=== PATIENT | female | born 1985 | race Caucasian/White ===

== ENCOUNTER 2017-01-29 00:14 | Emergency (ER) | payer BC, OTHER ==
[~2017-01-29] VITALS: Ht 172.7 cm; Wt 118.9 kg
[~2017-01-29 00:14] MED LIST: ACET-1256 PO; ASMIN/30 INH; BTLAI200 INJ; CYAN10005 PO; HYDR200T5 PO; LEVO137T3 PO; MULT-506 PO; NORE1CHW11 PO; PRVHFAIN INH; PRZ/40 PO; TOPI50TA16 PO
[2017-01-29 00:20] VITALS: TEMP 36.6; Ht 172.7 cm; Wt 118.9 kg
[2017-01-29] MEDS ORDERED: MoRPHine SULFATE 4 MG/ML 1 ML CARP\\VIAL IV STA (00:34)
[2017-01-29] MEDS ORDERED: ONDANSETRON INJ 2 MG/ML 2 ML VIAL IV STA (00:34)
[2017-01-29] MEDS ORDERED: SODIUM CHLORIDE 0.9% 1000ML 1,000 ML IV STA (00:34)
--- NOTE | 2017-01-29 00:38 | EMERGENCY ROOM VISIT NOTE ---
History Report prepared by Selamibgely: Solitario Nolen Under the Supervision of: Dr. Fidel Garcia D.O. First contact with patient: 00:27 Chief Complaint: OTHER COMPLAINT Stated Complaint: BLOODY DIARRHEA,VOMITING,DRY HEAVING,DIZZY,LUPUS History of Present Illness The patient is a 31 year old female who presents to the Emergency Room with complaints of persistent diarrhea since 0 today. The patient has been unable to keep anything down secondary to her nausea & vomiting. She has also had diarrhea, and notes that her last stool contained blood. The patient's son was experiencing nausea & vomiting prior to the patient. The patient notes that she has lupus, which is making her feel worse. She also has a brain lesion and chronic encephalitis. The patient is s/p gastric sleeve and thinks she developed an ulcer secondary to the surgery. Source of History: patient Onset: 1699 today Position: other (GI) Quality: other (vomiting) Timing: other (persistent) Associated Symptoms: + diarrhea, + nausea Review of Systems See HPI for pertinent positives and negatives. A total of ten systems were reviewed and were otherwise negative. 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 (14) Morbid Obesity (15) Obstructive Sleep Apnea (Adult) (Pediatric) (16) Pneumonia (17) Sleep apnea (18) Vitamin D deficiency Family History Diabetes mellitus Heart disease Hypertension Social History Smoking Status: Never Smoker Alcohol Use: none Drug Use: none Marital Status: Housing Status: lives with family Occupation Status: employed Current/Historical Medications Scheduled Botulinum Toxin Type A (Botox), 1 DOSE INJ [id number] Cyanocobalamin (Vitamin B-12), 5,000 MCG PO DAILY Fluoxetine Hcl (Prozac), 80 MG PO DAILY Hydroxychloroquine Sulfate (Plaquenil), 1 TAB PO BID Levothyroxine Sodium (Levothyroxine Sodium), 137 MCG PO DAILY Multivitamin (Multivitamin), 1 TAB PO DAILY Norethin Acet & Estrad-Fe (Minastrin 24 Fe), 1 DOSE PO DAILY Topiramate (Topamax), 75 MG PO DAILY Scheduled PRN Acetaminophen (Tylenol), 1,000 MG PO DIRECTED PRN for Pain Albuterol (Ventolin Hfa), 2 PUFFS INH Q6 PRN for Wheezing Mometasone Furoate (Asmanex Twisthaler 30 Me), 1 PUFF INH BID PRN for Shortness of Breath Allergies Coded Allergies: No Known Allergies (Unverified , 01/29/17) Physical Exam Vital Signs Date Time Temp Pulse Resp B/P Pulse Ox O2 Delivery O2 Flow Rate FiO2 01/29/17 01:00 88 01/29/17 00:20 36.6 102 18 132/85 100 Room Air Physical Exam GENERAL: Awake, alert, well-appearing, in no distress HENT: Normocephalic, atraumatic. Oropharynx unremarkable. EYES: Normal conjunctiva. Sclera non-icteric. NECK: Supple. No nuchal rigidity. FROM. No JVD. RESPIRATORY: Clear to auscultation. CARDIAC: Regular rate, normal rhythm. Extremities warm and well perfused. Pulses equal. ABDOMEN: Soft, non-distended. No tenderness to palpation. No rebound or guarding. No masses. RECTAL: Deferred. MUSCULOSKELETAL: Chest examination reveals no tenderness. The back is symmetrical on inspection without obvious abnormality. There is no CVA tenderness to palpation. No joint edema. LOWER EXTREMITIES: Calves are equal size bilaterally and non-tender. No edema. No discoloration. NEURO: Normal sensorium. No sensory or motor deficits noted. SKIN: No rash or jaundice noted. Medical Decision & Procedures Laboratory Results 01/29/17 00:50 Red Blood Count 5.05, Mean Corpuscular Volume 74.7, Mean Corpuscular Hemoglobin 24.2, Mean Corpuscular Hemoglobin Concent 32.4, Mean Platelet Volume 9.8 01/29/17 00:50 Test 01/29/17 00:50 White Blood Count 20.06 K/uL (4.8-10.8) Red Blood Count 5.05 M/uL (4.2-5.4) Hemoglobin 12.2 g/dL (12.0-16.0) Hematocrit 37.7 % (37-47) Mean Corpuscular Volume 74.7 fL (80-100) Mean Corpuscular Hemoglobin 24.2 pg (25-34) Mean Corpuscular Hemoglobin Concent 32.4 g/dl (32-36) Platelet Count 305 K/uL (130-400) Mean Platelet Volume 9.8 fL (7.4-10.4) RDW Standard Deviation 39.5 fL (36.4-46.3) RDW Coefficient of Variation 14.6 % (11.5-14.5) Anion Gap 14.0 mmol/L (3-11) Est Creatinine Clear Calc Drug Dose 109.5 ml/min Estimated GFR () 86.3 Estimated GFR (Non- 74.5 BUN/Creatinine Ratio 15.3 (10-20) Calcium Level 9.0 mg/dl (8.5-10.1) Total Bilirubin 0.6 mg/dl (0.2-1) Direct Bilirubin 0.1 mg/dl (0-0.2) Aspartate Amino Transf (AST/SGOT) 10 U/L (15-37) Alanine Aminotransferase (ALT/SGPT) 19 U/L (12-78) Alkaline Phosphatase 128 U/L (45-117) Total Protein 8.5 gm/dl (6.4-8.2) Albumin 4.1 gm/dl (3.4-5.0) Lipase 138 U/L (73-393) Laboratory results reviewed by me Medications Administered Medications (Trade) Dose Ordered Sig/Derek Route Start Time Stop Time Status Last Admin Dose Admin Ondansetron HCl 4 mg 4 mg NOW STAT IV 01/29/17 00:34 01/29/17 00:38 DC 01/29/17 00:59 4 MG Sodium Chloride (Nss 1000ml) 1,000 ml @ 999 mls/hr Q1H1M STAT IV 01/29/17 00:34 01/29/17 01:34 DC 01/29/17 00:34 999 MLS/HR Morphine Sulfate (MoRPHine SULFATE INJ) 4 mg NOW STAT IV 01/29/17 00:34 01/29/17 00:38 DC 01/29/17 00:59 4 MG ED Course 0030: The patient was evaluated in room B6. A complete history and physical exam was performed. 0034: Morphine Sulfate 4 mg IV, NSS 1000 ml @ 999 mls/hr, Zofran 4 mg IV. 0145: Upon reevaluation, the patient was doing much better. I discussed the discharge instructions with her. She verbalized understanding. The patient is ready for discharge. Medical Decision Etiologies such as gastroenteritis, food borne illness, infections, obstruction , pancreatitis, appendicitis, diverticulitis, inflammatory bowel disease, GI bleed, biliary pathology, toxicologic as well as others were entertained. Patient on reexamination at 1:48 AM is resting in no distress and much improved after medication as well as IV fluids. I doubt bowel obstruction I doubt sepsis and I doubt bacterial cause for her vomiting and diarrhea. Patient has an elevated white blood cell count I suspect that's due to vomiting and diarrhea. I discussed the workup with the patient and the patient's friend at bedside and answered all questions. Impression Primary Impression: Vomiting and diarrhea Scribe Attestation The scribe's documentation has been prepared under my direction and personally reviewed by me in its entirety. I confirm that the note above accurately reflects all work, treatment, procedures, and medical decision making performed by me. Departure Information Dispostion Home / Self-Care Prescriptions Ondasetron Odt (ZOFRAN ODT) 4 Mg Tab 4 MG SL Q6H for Nausea, #6 TAB Prov: Fidel Garcia, DO 01/29/17 Referrals Manjula Arciniega (PCP) Forms HOME CARE DOCUMENTATION FORM, IMPORTANT VISIT INFORMATION, WORK / SCHOOL INSTRUCTIONS Patient Instructions ED Vomiting Diarrhea Nonspecific Ad, My [facility]
[2017-01-29 01:07] LABS: HEMATOCRIT 37.7 % (37-47); MEAN CELL VOLUME 74.7 fL (80-100); MEAN CORPUSCULAR HEMOGLOBIN 24.2 pg (25-34); MEAN CORPUSCULAR HGB CONC 32.4 g/dl (32-36); MEAN PLATELET VOLUME 9.8 fL (7.4-10.4); PLATELET COUNT 305 K/uL (130-400); RED BLOOD COUNT 5.05 M/uL (4.2-5.4); WHITE BLOOD COUNT 20.06 K/uL (4.8-10.8)
[2017-01-29 01:25] LABS: BUN/CREATININE RATIO 15.3 (10-20); POTASSIUM 3.7 mmol/L (3.5-5.1)
[2017-01-29 01:49] LABS: ANISOCYTOSIS PRESENT; BASO % 0.1 %; BASO ABS # 0.02 K/uL (0-0.2); COMPLETE YES; EOS % 0.1 %; IG% 0.3 %; LYMPH % 1.4 %; LYMPH ABS # 0.28 K/uL (1.2-3.4); NEUT % 93.1 %
[2017-01-29] MEDS ORDERED: ONDA4TAB10 SL (01:49)
[2017-01-29] MEDS ORDERED: ONDANSETRON HOME PACK 4MG OD TAB PO ONE (02:00)
[2017-01-29 02:14] VITALS: BP 122/77; PULSE 95; O2SAT 100
== END 2017-01-29 02:15 | disposition home or self-care (01) ==
LOC: C.EDB 00:19
DX: R11.10 Vomiting, unspecified (principal); R19.7 Diarrhea, unspecified; M32.9 Systemic lupus erythematosus, unspecified; G93.9 Disorder of brain, unspecified; G04.90 Encephalitis and encephalomyelitis, unspecified; F41.9 Anxiety disorder, unspecified; E11.9 Type 2 diabetes mellitus without complications; I10 Essential (primary) hypertension; E03.9 Hypothyroidism, unspecified; G47.33 Obstructive sleep apnea (adult) (pediatric); E66.01 Morbid (severe) obesity due to excess calories; Z86.14 Personal history of Methicillin resistant Staphylococcus aureus infection; E55.9 Vitamin D deficiency, unspecified; Z98.84 Bariatric surgery status; Z83.3 Family history of diabetes mellitus; Z82.49 Family history of ischemic heart disease and other diseases of the circulatory system; Z79.899 Other long term (current) drug therapy

== ENCOUNTER → 2017-06-05 | Outpatient (CLI) | payer BC ==
[~2017-06-05] MED LIST changes: -ASMIN/30 INH; +GADAVIST IV PRN; -NORE1CHW11 PO; +ONDA4TAB10 SL
--- NOTE | 2017-06-05 10:56 | DIAGNOSTIC IMAGING REPORT ---
BRAIN COMBO CLINICAL HISTORY: HEADACHES, MEMORY LOSS mental status change COMPARISON STUDY: 06/07/2016 TECHNIQUE: Utilizing a 1.5 Rebecca magnet and dedicated coil, multiplanar, multiecho imaging of the brain was performed pre and postcontrast administration. IV administration of 8.5 mL of Gadavist contrast was uneventful. FINDINGS: No evidence for an acute ischemic process. Small focus of increased FLAIR signal posterior right frontal lobe unchanged from the prior exam. No abnormal postcontrast enhancement. The ventricular system is midline. Sella and parasellar regions are unremarkable. Cerebellar tonsils are somewhat low-lying unchanged from the prior exam. No evidence for hydrocephalus. IMPRESSION: 1. Stable exam with no change from the prior study. 2. Stable nonspecific focus of increased T2 and FLAIR signal posterior right frontal lobe. 3. No acute process. No interval change from the prior study The above report was generated using voice recognition software. It may contain grammatical, syntax or spelling errors. Electronically signed by: Lenny Forbes M.D. 06/05/2017 10:54 AM Dictated Date/Time: 06/05/2017 10:46 AM
== END | disposition home or self-care (01) ==
LOC: C.MRIBC 09:37
PROVIDERS: ATTEND Internal Medicine Rheumatology
DX: R41.3 Other amnesia (principal); R51 Headache

== ENCOUNTER → 2017-06-06 | Outpatient (CLI) | payer BC ==
[~2017-06-06] MED LIST changes: -GADAVIST IV PRN
== END | disposition home or self-care (01) ==
LOC: C.LAB 08:42
PROVIDERS: ATTEND Psychiatry & Neurology Neurology
DX: G25.81 Restless legs syndrome (principal)

== ENCOUNTER → 2017-07-09 | Outpatient (CLI) | payer BC ==
[2017-07-09 12:43] LABS: HEMATOCRIT 36.9 % (37-47); MEAN CELL VOLUME 79.4 fL (80-100); MEAN CORPUSCULAR HEMOGLOBIN 24.9 pg (25-34); MEAN CORPUSCULAR HGB CONC 31.4 g/dl (32-36); MEAN PLATELET VOLUME 10.1 fL (7.4-10.4); PLATELET COUNT 326 K/uL (130-400); RED BLOOD COUNT 4.65 M/uL (4.2-5.4); WHITE BLOOD COUNT 6.97 K/uL (4.8-10.8)
== END | disposition home or self-care (01) ==
LOC: C.LAB1850 10:52
PROVIDERS: ATTEND Obstetrics & Gynecology
DX: N92.0 Excessive and frequent menstruation with regular cycle (principal)

== ENCOUNTER → 2017-12-10 | Day surgery (SDC) | payer OTHER ==
[2017-11-29 15:21] VITALS: BMI 40.0
[~2017-12-10] VITALS: Ht 172.7 cm; Wt 120.5 kg
[~2017-12-10] MED LIST changes: +ASMANAX INH; -BTLAI200 INJ; +CHOL1000 PO; -CYAN10005 PO; +CYAN50LO2 SL; +FENTANYL CITRATE INJ 50 MCG/1 ML 2 ML VIAL ONE; +KETAMINE HCL INJ 50 MG/ML 10 ML VIAL ONE; +LIDOCAINE HCL 2% 2 ML VIAL (20MG/ML) ONE; +MIDAZOLAM HCL 1 MG/ML 2ML VIAL ONE; -MULT-506 PO; -ONDA4TAB10 SL; +PROPOFOL IV EMULSION 10 MG/ML 20 ML VIAL IV ONE; +SODIUM CHLORIDE 0.9% 500ML 500 ML IV ONE; +TOPI1CAP14 PO; -TOPI50TA16 PO
[2017-12-10 14:45] VITALS: Ht 172.7 cm; Wt 120.5 kg
--- NOTE | 2017-12-10 15:03 | Endo History and Physical ---
History & Physical Date of Service: Dec 10, 2017. Chief Complaint: RECTAL BLEEDING, IRON DEFICIENCY ANEMIA Referring Physician: DR ZURI ESCOBEDO History of Present Illness rectal bleeding/JAIRON Past Medical History Diabetes, Anxiety, Sleep Apnea, Depression Past Surgical History Hx Cardiac Surgery: No Hx Internal Defibrillator: No Hx Pacemaker: No Hx Abdominal Surgery: Yes (GASTRIC SLEEVE, X2, UTERINE ABLATION, OVARIAN CYST REMOVAL) Hx of Implantable Prosthesis: No Hx Post-Op Nausea and Vomiting: No Hx Cancer Surgery: No Hx Thoracic Surgery: No Hx Orthopedic: No Hx Urinary Tract Surgery: No Family History Polyp Social History Smoking Status: Never Smoker Hx Substance Use: No Hx Alcohol Use: No Allergies Coded Allergies: No Known Allergies (Verified , 12/10/17) Current Medications Reported Home Medications Medications Dose Route/Sig Max Daily Dose Days Date Category [Asmanax] 2 Puffs INH BID 11/29/17 Reported Vitamin B-12 (Cyanocobalamin) 50 Mcg Joey 1 Dose SL DAILY 11/29/17 Reported Vitamin D3 (Cholecalciferol) 1,000 Unit Tab 1 Tab PO DAILY 11/29/17 Reported Qudexy Xr (Topiramate) 150 Mg Cap 1 Cap PO HS 11/29/17 Reported Ventolin Hfa (Albuterol) 60 Puffs/5400 Mcg Aers 2 Puffs INH Q6 PRN 06/28/16 Reported Tylenol (Acetaminophen) 500 Mg Tab 1,000 Mg PO DIRECTED PRN 04/18/16 Reported Plaquenil (Hydroxychloroquine Sulfate) 200 Mg Tab 1 Tab PO BID 02/22/16 Reported Levothyroxine Sodium 137 Mcg Tab 137 Mcg PO HS 09/29/14 Reported Prozac (Fluoxetine Hcl) 40 Mg Cap 80 Mg PO QAM 09/29/14 Reported Vital Signs Weight (Kilograms): 120.45 Height (Feet): 5 Height (Inches): 8 Date Time Temp Pulse Resp B/P (MAP) Pulse Ox O2 Delivery O2 Flow Rate FiO2 12/10/17 14:43 36.5 68 18 126/78 (94) 98 Room Air Physical Exam General Appearance: WD/WN, no apparent distress Respiratory/Chest: Auscultation: breath sounds normal Cardiovascular: Heart Auscultation: RRR Abdomen: Bowel Sounds: normal Inspection & Palpation: soft, non-distended, no tenderness, guarding & rebound Assessment and Plan EGD/Push colonoscopy
--- NOTE | 2017-12-10 16:09 | GI REPORT ---
Procedure Date: 12/10/2017 3:16 PM Procedure: Colonoscopy Indications: Chronic diarrhea, Unexplained iron deficiency anemia, Hx colitis in [place], [place]- rx's with Asacol; stopped due to passing whole tablets. Medicines: Propofol per Anesthesia Complications: No immediate complications. Estimated blood loss: Minimal. Estimated Blood Loss: Estimated blood loss was minimal. Estimated blood loss was minimal. Procedure: Pre-Anesthesia Assessment: - Prior to the procedure, a History and Physical was performed, and patient medications and allergies were reviewed. The patient's tolerance of previous anesthesia was also reviewed. The risks and benefits of the procedure and the sedation options and risks were discussed with the patient. All questions were answered, and informed consent was obtained. Prior Anticoagulants: The patient has taken no previous anticoagulant or antiplatelet agents. ASA Grade Assessment: II - A patient with mild systemic disease. After reviewing the risks and benefits, the patient was deemed in satisfactory condition to undergo the procedure. After I obtained informed consent, the scope was passed under direct vision. Throughout the procedure, the patient's blood pressure, pulse, and oxygen saturations were monitored continuously. The scope was introduced through the anus and advanced to the terminal ileum, with identification of the appendiceal orifice and IC valve. The colonoscopy was performed without difficulty. The patient tolerated the procedure well. The quality of the bowel preparation was good. Findings: The perianal and digital rectal examinations were normal. Pertinent negatives include normal sphincter tone, no palpable rectal lesions and no anal lesion or abnormality was detected. The colon (entire examined portion) appeared normal. The rectum, sigmoid colon, descending colon, transverse colon, ascending colon, cecum and ileum appeared normal. Biopsies were taken with a cold forceps for histology. Estimated blood loss was minimal. Verification of patient identification for the specimen was done by the physician and instrumentation and control technician using the patient's name and medical record number. The retroflexed view of the distal rectum and anal verge was normal and showed no anal or rectal abnormalities. Impression: - The entire examined colon is normal. - The rectum, sigmoid colon, descending colon, transverse colon, ascending colon, cecum and terminal ileum are normal. Biopsied. - The distal rectum and anal verge are normal on retroflexion view. Recommendation: - Discharge patient to home (ambulatory). - Resume regular diet. - Continue present medications. - Await pathology results. - Repeat colonoscopy for surveillance based on pathology results. - Return to referring physician as previously scheduled. MD Arsh Vega MD 12/10/2017 4:08:32 PM This report has been signed electronically. Note Initiated On: 12/10/2017 3:16 PM I attest to the content of the Intraoperative Record and orders documented therein, exceptions below
--- NOTE | 2017-12-10 16:16 | Discharge Instructions ---
Endoscopy Patient Instructions Date / Procedure(s) Performed Dec 10, 2017. Colonoscopy, EGD Allergy Information Coded Allergies: No Known Allergies (Verified , 12/10/17) Discharge Date / Findings Dec 10, 2017. nl colon EGD with linear gastritis Medication Instructions Restart Stopped Medication(s): Reported Home Medications Medications Dose Route/Sig Max Daily Dose Days Date Category [Asmanax] 2 Puffs INH BID 11/29/17 Reported Vitamin B-12 (Cyanocobalamin) 50 Mcg Joey 1 Dose SL DAILY 11/29/17 Reported Vitamin D3 (Cholecalciferol) 1,000 Unit Tab 1 Tab PO DAILY 11/29/17 Reported Qudexy Xr (Topiramate) 150 Mg Cap 1 Cap PO HS 11/29/17 Reported Ventolin Hfa (Albuterol) 60 Puffs/5400 Mcg Aers 2 Puffs INH Q6 PRN 06/28/16 Reported Tylenol (Acetaminophen) 500 Mg Tab 1,000 Mg PO DIRECTED PRN 04/18/16 Reported Plaquenil (Hydroxychloroquine Sulfate) 200 Mg Tab 1 Tab PO BID 02/22/16 Reported Levothyroxine Sodium 137 Mcg Tab 137 Mcg PO HS 09/29/14 Reported Prozac (Fluoxetine Hcl) 40 Mg Cap 80 Mg PO QAM 09/29/14 Reported Reported Home Medications Medications Dose Route/Sig Max Daily Dose Days Date Category [Asmanax] 2 Puffs INH BID 11/29/17 Reported Vitamin B-12 (Cyanocobalamin) 50 Mcg Joey 1 Dose SL DAILY 11/29/17 Reported Vitamin D3 (Cholecalciferol) 1,000 Unit Tab 1 Tab PO DAILY 11/29/17 Reported Qudexy Xr (Topiramate) 150 Mg Cap 1 Cap PO HS 11/29/17 Reported Ventolin Hfa (Albuterol) 60 Puffs/5400 Mcg Aers 2 Puffs INH Q6 PRN 06/28/16 Reported Tylenol (Acetaminophen) 500 Mg Tab 1,000 Mg PO DIRECTED PRN 04/18/16 Reported Plaquenil (Hydroxychloroquine Sulfate) 200 Mg Tab 1 Tab PO BID 02/22/16 Reported Levothyroxine Sodium 137 Mcg Tab 137 Mcg PO HS 09/29/14 Reported Prozac (Fluoxetine Hcl) 40 Mg Cap 80 Mg PO QAM 09/29/14 Reported Provider Instructions Activity Restrictions - No exercising or heavy lifting for 24 hours. - Do not drink alcohol the day of the procedure. - Do not drive a car or operate machinery until the day after the procedure. - Do not make any important decisions or sign important papers in 24 hours after the procedure. Following Day: - Return to full activity which may include returning to work/school. Diet Start your diet with liquids and light foods (jello, soup, juice, toast). Then eat your usual diet if not nauseated. Treatment For Common After Affects For mild abdominal pain, bloating, or excessive gas: - Rest - Eat lightly - Lie on right side Follow-Up Information Follow-up with DR ZURI ESCOBEDO as scheduled Anesthesia Information What You Should Know You have had a procedure that required some medicine to reduce anxiety and discomfort. This treatment is called moderate sedation. After receiving the treatment, you may be sleepy, but you will be able to breathe on your own. The effects of the treatment may last for several hours. Follow these instructions along with Activity/Diet recommendations noted above: * Do NOT do anything where dizziness or clumsiness would be dangerous. * Rest quietly at home today, then you can be up and about tomorrow. * Have a responsible person stay with you the rest of today. * You may have had an I.V. today. If so, you may take the dressing off later today. Recommendations Call your doctor if: * Trouble breathing * Continuous vomiting for more than 24 hours * Temperature above 101 degrees * Severe abdominal pain or bloating * Pain not relieved by pain medicine ordered * There is increased drainage or redness from any incision * A large amount of rectal bleeding greater than 2-3 tablespoons. (If you had a polyp/s removed or have hemorrhoids, a small amount of blood - from the rectum is to be expected.) * You have any unanswered questions or concerns. IN THE EVENT OF A SERIOUS EMERGENCY, GO TO THE NEAREST EMERGENCY ROOM Your discharge instructions were prepared by provider Arsh eDng. Patient Instructions Signature Page Komal Sifuentes Patient (or Guardian) Signature/Date: I have read and understand the instructions given to me by my caregivers. Caregiver/RN/Doctor Signature/Date: The above-named patient and/or guardian has received patient instructions on this date. + Original Patient Signature Page (only) stays with chart. Please make copy for patient.
--- NOTE | 2017-12-10 16:17 | Anesthesiology Progress Note ---
Anesthesia Post Op Note Date & Time Dec 10, 2017 at 16:16 Vital Signs Pain Intensity: 0 Vital Signs Past 12 Hours Date Time Temp Pulse Resp B/P (MAP) Pulse Ox O2 Delivery O2 Flow Rate FiO2 12/10/17 16:02 72 12 113/78 (90) 100 Nasal Cannula 3 12/10/17 14:43 36.5 68 18 126/78 (94) 98 Room Air Notes Mental Status: alert / awake / arousable, participated in evaluation Pt Amnestic to Procedure: Yes Nausea / Vomiting: adequately controlled Pain: adequately controlled Airway Patency, RR, SpO2: stable & adequate BP & HR: stable & adequate Hydration State: stable & adequate Anesthetic Complications: no major complications apparent
--- NOTE | 2017-12-10 16:22 | GI REPORT ---
Procedure Date: 12/10/2017 3:16 PM Procedure: Upper GI endoscopy Indications: Iron deficiency anemia, Unexplained iron deficiency anemia, Hx gastric sleeve surgery Medicines: Propofol per Anesthesia Complications: No immediate complications. Estimated blood loss: Minimal. Estimated Blood Loss: Estimated blood loss was minimal. Procedure: Pre-Anesthesia Assessment: - Prior to the procedure, a History and Physical was performed, and patient medications and allergies were reviewed. The patient's tolerance of previous anesthesia was also reviewed. The risks and benefits of the procedure and the sedation options and risks were discussed with the patient. All questions were answered, and informed consent was obtained. Prior Anticoagulants: The patient has taken no previous anticoagulant or antiplatelet agents. ASA Grade Assessment: II - A patient with mild systemic disease. After reviewing the risks and benefits, the patient was deemed in satisfactory condition to undergo the procedure. After obtaining informed consent, the endoscope was passed under direct vision. Throughout the procedure, the patient's blood pressure, pulse, and oxygen saturations were monitored continuously. The scope was introduced through the mouth, and advanced to the mid-jejunum. The upper GI endoscopy was accomplished without difficulty. The patient tolerated the procedure well. Findings: The examined esophagus was normal. The Z-line was regular and was found 40 cm from the incisors. Evidence of a sleeve gastrectomy was found in the gastric fundus. This was characterized by congestion, erythema and inflammation. Multiple localized, small non-bleeding erosions were found in the gastric body and in the gastric antrum. There were no stigmata of recent bleeding. Biopsies were taken with a cold forceps for histology. Estimated blood loss was minimal. Verification of patient identification for the specimen was done by the physician and video game technician using the patient's name and medical record number. The examined duodenum was normal. Biopsies for histology were taken with a cold forceps for evaluation of celiac disease. Estimated blood loss was minimal. Verification of patient identification for the specimen was done by the physician and video game technician using the patient's name and medical record number. The examined jejunum was normal. The cardia and gastric fundus were normal on retroflexion. Retained gastric contents are not identified on this exam. Impression: - Normal esophagus. - Z-line regular, 40 cm from the incisors. - A sleeve gastrectomy was found, characterized by congestion, erythema and inflammation. - Non-bleeding erosive gastropathy. Biopsied. - Normal examined duodenum. Biopsied. - Normal examined jejunum. Recommendation: - Discharge patient to home (ambulatory). - Resume regular diet. - Continue present medications. - Await pathology results. - Return to referring physician as previously scheduled. MD Arsh Vega MD 12/10/2017 4:21:35 PM This report has been signed electronically. Note Initiated On: 12/10/2017 3:16 PM I attest to the content of the Intraoperative Record and orders documented therein, exceptions below
[2017-12-10 16:46] VITALS: BP 126/81; PULSE 72; O2SAT 100
== END | disposition home or self-care (01) ==
LOC: C.GI 13:42
PROVIDERS: ATTEND Internal Medicine Gastroenterology
DX: K62.5 Hemorrhage of anus and rectum (principal); D50.9 Iron deficiency anemia, unspecified; K29.50 Unspecified chronic gastritis without bleeding; R19.7 Diarrhea, unspecified; E11.9 Type 2 diabetes mellitus without complications; F41.9 Anxiety disorder, unspecified; G47.30 Sleep apnea, unspecified; F32.9 Major depressive disorder, single episode, unspecified; Z98.84 Bariatric surgery status; Z79.899 Other long term (current) drug therapy

== ENCOUNTER → 2018-02-11 | Outpatient (CLI) | payer OTHER ==
[~2018-02-11] MED LIST changes: -FENTANYL CITRATE INJ 50 MCG/1 ML 2 ML VIAL ONE; -KETAMINE HCL INJ 50 MG/ML 10 ML VIAL ONE; -LIDOCAINE HCL 2% 2 ML VIAL (20MG/ML) ONE; -MIDAZOLAM HCL 1 MG/ML 2ML VIAL ONE; -PROPOFOL IV EMULSION 10 MG/ML 20 ML VIAL IV ONE; -SODIUM CHLORIDE 0.9% 500ML 500 ML IV ONE
--- NOTE | 2018-02-11 15:35 | DIAGNOSTIC IMAGING REPORT ---
MRI OF THE BRAIN WITHOUT CONTRAST CLINICAL HISTORY: Headache. Follow-up white matter abnormality. COMPARISON STUDY: MRI of the brain July 17, 2014 and June 05, 2017. TECHNIQUE: Utilizing a 1.5 Rebecca magnet and dedicated coil, multiplanar, multiecho imaging of the brain was performed without IV contrast. FINDINGS: Exam is mildly compromised by motion artifact. There are no foci of restricted diffusion. No acute intracranial hemorrhage, midline shift or mass effect is present. Ventricular system is normal. Basilar cisterns are patent. Flow-voids for the major intracranial vessels are present. No intracranial masses identified on this unenhanced examination. A 7 mm T2 hyperintense focus within the medial inferior right frontal lobe shown best on coronal FLAIR image is similar to exam of June 05, 2017 and decreased in conspicuity from earlier MRIs. No additional foci of signal abnormality are identified on this exam. Orbits are unremarkable. Calvarial signal is maintained. A T2 hyperintense focus within the right maxillary sinus is unchanged. This may reflect images retention cyst or polyp. Several suspected sebaceous cysts are noted. IMPRESSION: 1. No acute intracranial findings. 2. No change in a 7 mm T2 hyperintense focus within the inferior medial right frontal lobe since previous exam. 3. Study mildly compromised by motion artifact. Electronically signed by: Rei Trejo M.D. 02/11/2018 3:34 PM Dictated Date/Time: 02/11/2018 3:27 PM
== END | disposition home or self-care (01) ==
LOC: C.MRI 14:33
PROVIDERS: ATTEND Internal Medicine Rheumatology
DX: R51 Headache (principal)

== ENCOUNTER → 2018-03-26 | Outpatient (CLI) | payer OTHER ==
--- NOTE | 2018-03-26 21:42 | DIAGNOSTIC IMAGING REPORT ---
ABDOMINAL WALL ULTRASOUND CLINICAL HISTORY: Abdominal wall mass abdominal wall bruising COMPARISON STUDY: No previous studies for comparison. FINDINGS: There is slight heterogeneity in the anterior abdominal wall fat. This could be secondary to an area of bruising or fat necrosis given the clinical history of visualized ecchymosis. No focal masses are delineated. IMPRESSION: 1. No focal masses are visualized ultrasonographically 2. Slight heterogeneity of the anterior abdominal wall subcutaneous fat. This could be secondary to an area of bruising or fat necrosis. 3. No evidence of anterior abdominal wall hernia Electronically signed by: David Vasquez M.D. 03/26/2018 9:41 PM Dictated Date/Time: 03/26/2018 9:37 PM
== END | disposition home or self-care (01) ==
LOC: C.ULTR 21:00
PROVIDERS: ATTEND Family Medicine
DX: R19.00 Intra-abdominal and pelvic swelling, mass and lump, unspecified site (principal)

== ENCOUNTER 2019-04-16 18:49 | Inpatient (IN) ==
--- OUTSIDE RECORDS SUMMARY | 2019-04-16 18:52 | External Medical Summary | Continuity of Care Document ---
:1985 Author Name Lauren Garcia, Provider Address Unavailable Unavailable , Care Team Providers Name Role Phone Tammi Baptiste DO Unavailable [email or web address] Griselda Rogers PA-C Unavailable [email or web address] Mohsen Salazar M.D. Unavailable [email or web address] Case Nan SMITH Unavailable [email or web address] Problems Meningioma (225.2) (D32.9) Dysmenorrhea (625.3) (N94.6) Obstructive sleep apnea (327.23) (G47.33) Headache (784.0) (R51) Syncope (780.2) (R55) Dizziness (780.4) (R42) Abnormal brain MRI (793.0) (R90.89) Claustrophobia (300.29) (F40.240) Pneumonia (486) (J18.9) Chronic cough (786.2) (R05) Restless legs (333.94) (G25.81) Chronic headaches (784.0) (R51) Reactive airway disease (493.90) (J45.909) Nasal pain (478.19) (J34.89) Menorrhagia with regular cycle (626.2) (N92.0) Iron deficiency (280.9) (E61.1) Systemic lupus erythematosus (710.0) (M32.9) Chronic migraine (346.70) (G43.709) Anxiety (300.00) (F41.9) Arthritis (716.90) (M19.90) Cyst of soft tissue (729.99) (M79.89) Allergies and Adverse Reactions No Known Drug Allergies (Allergy) Medications Asmanex 120 Metered Doses 220 MCG/INH In halation Aerosol Powder Breath Activated; INHALE 1 PUFF TWICE DAILY. LUIS Rogers Start: 2-Aug-201 6 Quantity: 3 Refills: 0 Vitamin B-12 5000 MCG Sublingual Tablet Sublingual Refills: 0 Multivital TABS Refills: 0 PROzac 40 MG Oral Capsule; TAKE 2 CAPSULES DAILY. Refills: 0 Qudexy XR 100 MG Oral Capsule ER 24 Hour Sprinkle; TAKE 1 CAPSULE Daily total 300mg Case, LUIS Ambrose Start: 27-Aug-2018 Quantity: 30 Refills: 5 Plaquenil 200 MG Oral Tablet; TAKE 1 TABLET TWICE DAILY. Refills: 0 Qudexy XR 200 MG Oral Capsule ER 24 Hour Sprinkle; TAKE 1 CAPSULE BY MOUTH DAILY DO Rober Baptistelie Start: 13-Mar-2019 Quantity: 30 Refills: 5 Naratriptan HCl - 2.5 MG Oral Tablet; TA KE 1 TABLET AT ONSET OF HEADACHE, MAY REPEAT ONCE IN 4 HOURS. Max 2 tabs in 24hrs and 4 tabs in one week Case, LUIS Ambrose Start: 30-Aug-2016 Quantity: 8 Refills: 5 Mupirocin 2 % External Ointment; APPLY SMALL AMOUNT IN SIDE NOSTRILS TWICE DAILY Radha Salazar Start: 21-Jun-2017 Quantity: 1 22 GM Tube Refills: 3 ProAir HFA 108 (90 Base) MCG/ACT Inhalat ion Aerosol Solution; INHALE 2 PUFFS EVERY 4 HOURS NEEDED LUIS Rogers Start: 13-Jun-2017 Quantity: 1 8.5 GM Inhaler Refills: 3 Diclofenac Sodium 75 MG Oral Tablet Cherelle yed Release; one BID with food prn pain, as needed for headache, no more than 2-3 days a week Case, LUIS Ambrose Start: 02-Jan-2018 Quantity: 30 Refills: 3 Procedures History of Section Status: Comp leted History of Drainage Of Ovarian Cyst(S) S tatus: Completed History of gastric bypass surgery Status : Completed History of wisdom tooth extraction Statu s: Completed History of skin abscess incision and drainage Status: Completed Immunizations Immunizations not documented Family History Mother Family history of alcoholism (V17.0) (Z81.1) Status: Active Family history of hypertension (V17.49) (Z82.49) Status: Act jason Family history of cardiac disorder (V17.49) (Z82.49) Status: Active Family history of bleeding disorder (V18.3) (Z83.2) Status: Active Family history of malignant neoplasm of uterus (V16.49) (Z80 .49) Status: Active Father Family history of hypertension (V17.49) (Z82.49) Status: Act jason Family history of cardiac disorder (V17.49) (Z82.49) Status: Active Grandparent Family history of cerebrovascular accident (CVA) (V17.1) (Z8 2.3) Status: Active Social History - Smoking Status Never smoker Plan of Treatment Planned Observations Planned Goals not documented Results No Known Results Results not documented Encounters Appointment; Kobe Mae DO 05-Feb-2019 10:20 Encounter Diagnosis: Problem not documented Appointment; Kobe Mae DO 08-Jan-2019 9:00 Encounter Diagnosis: Problem not documented Appointment; Kobe Mae DO 18-Dec-2018 8:50 Encounter Diagnosis: Problem not documented Appointment; Kobe Mae DO 06-Dec-2018 10:30 Encounter Diagnosis: Problem not documented Appointment; Nan Huerta PA-C 27-Nov-2018 9:00 Encounter Diagnosis: Problem not documented Appointment; Kobe Mae DO 20-Nov-2018 13:50 Encounter Diagnosis: Problem not documented Appointment; Nan Huerta PA-C 27-Aug-2018 11:30 Encounter Diagnosis: Problem not documented Appointment; Nan Huerta PA-C 29-Apr-2018 9:00 Encounter Diagnosis: Problem not documented Appointment; Nan Huerta PA-C 02-Jan-2018 9:00 Encounter Diagnosis: Problem not documented Appointment; Tammi Baptiste DO 02-Oct-2017 14:40 Encounter Diagnosis: Problem not documented Appointment; Tammi Baptiste DO 01-Aug-2017 14:40 Encounter Diagnosis: Problem not documented Appointment; Jan Diaz M.D. 09-Jul-2017 10:00 Encounter Diagnosis: Problem not documented Appointment; Mohsen Salazar M.D. 21-Jun-2017 10:00 Encounter Diagnosis: Problem not documented Appointment; Griselda Rogers PA-C 13-Jun-2017 14:45 Encounter Diagnosis: Problem not documented Appointment; Pulmonary, Funct Testing 13-Jun-2017 10:45 Encounter Diagnosis: Problem not documented Appointment; Pulmonary, Funct Testing 17-May-2017 9:00 Encounter Diagnosis: Problem not documented
--- NOTE | 2019-04-16 20:17 | CT Scan Report ---
ABDOMEN AND PELVIS CT WITHOUT CONTRAST CT DOSE: 944.64 mGycm HISTORY: eval for hernia/mass lower abd on scar TECHNIQUE: Multiaxial CT images of the abdomen and pelvis were performed without contrast. A dose lo wering technique was utilized adhering to the principles of ALARA. COMPARISON STUDY: Abdominal ultrasound 03/26/2018. FINDINGS: Within the subcutaneous fat of the lower left anterior abdominal wall there is a 2.6 x 2.4 cm soft tissue masslike density. This abuts the left rectus abdominus muscle. No hernia identified wi thin the abdominal wall. The lung bases are clear. The unenhanced liver, gallbladder, pancreas, splee n, adrenal glands, and left kidney are unremarkable. There is an 8 mm hyperdense focus within the rig ht kidney. No renal stones or hydronephrosis. No retroperitoneal lymphadenopathy. Postoperative villegas es within the proximal stomach. The bladder, uterus, and ovaries are unremarkable. Suboptimal evaluat ion for bowel pathology due to the lack of intravenous and oral contrast. However, there is no defini te bowel wall thickening or obstruction. Normal appendix. IMPRESSION: Within the subcutaneous fat of the lower left anterior abdominal wall there is a 2.6 x 2.4 cm soft ti ssue masslike density. This abuts the anterior border of the left rectus abdominus muscle. No hernia identified within the abdominal wall. Electronically signed by: Suraj Avery M.D. 04/16/2019 8:16 PM
[2019-04-16 20:23] LABS: Basophils # (auto) 0.03 K/uL (0-0.2); Basophils % (auto) 0.4 %; Eosinophils # (auto) 0.13 K/uL (0-0.5); Eosinophils % (auto) 1.8 %; Hematocrit (blood only) 36.6 % (37-47); Hemoglobin 12.9 g/dL (12.0-16.0); Immature Granulocytes # (auto) 0.01 K/uL (0.00-0.02); Immature Granulocytes % (auto) 0.1 %; Lymphocytes # (auto) 2.13 K/uL (1.2-3.4); Lymphocytes % (auto) 30.3 %; Mean Corpuscular Hgb Conc 35.2 g/dL (32-36); Mean Corpuscular Volume 87.4 fL (80-100); Mean Platelet Volume 9.5 fL (7.4-10.4); Monocytes # (auto) 0.36 K/uL (0.11-0.59); Monocytes % (auto) 5.1 %; Neutrophils # (auto) 4.38 K/uL (1.4-6.5); Neutrophils % (auto) 62.3 %; Platelet Count 231 K/uL (130-400); RDW Coefficient of Variation 12.9 % (11.5-14.5); RDW Standard Deviation 41.6 fL (36.4-46.3); Red Blood Count 4.19 M/uL (4.2-5.4); White Blood Count 7.04 K/uL (4.8-10.8)
[2019-04-16 20:34] LABS: Partial Thromboplastin Time 26.2 Seconds (21.0-31.0); Prothrombin Time 10.1 Seconds (9.0-12.0)
--- NOTE | 2019-04-16 20:34 | XRay Report ---
XR chest 1V portable HISTORY: Sepsis COMPARISON: Chest 05/23/2016. FINDINGS: The lungs are clear. Cardiac silhouette is normal in size. No pleural effusions. No pneumot horax. IMPRESSION: No acute process. Electronically signed by: Suraj Avery M.D. 04/16/2019 8:33 PM
[2019-04-16 20:39] LABS: Albumin Level 3.6 gm/dl (3.4-5.0); BUN Creatinine Ratio 11.3 (10-20); Calcium 8.8 mg/dl (8.5-10.1); Creatinine Clr Calc Pharmacy 118.6 ml/min; Est GFR (African American) 113.2; Est GFR (Non-African American) 97.7; Potassium 3.6 mmol/L (3.5-5.1)
[2019-04-16 20:42] LABS: Albumin Globulin Ratio 1.2 (0.9-2); Bilirubin,Total 0.3 mg/dl (0.2-1); Globulin 3.1 gm/dl (2.5-4.0); Total Protein 6.7 gm/dl (6.4-8.2)
[2019-04-16 20:49] LABS: Appearance Urine Cloudy (Clear); Bacteria Urine Automated Negative (Negative); Bilirubin Urine Negative (Negative); Blood Urine Negative (Negative); Color Urine Yellow; Glucose Urine UA Negative (Negative); Ketones Urine Trace (Negative); Leukocyte Esterase Urine Negative (Negative); Nitrite Urine Negative (Negative); Protein Urine Negative (Negative); RBC Urine Automated 0-4 /hpf (0-4); Specific Gravity Urine 1.018 (1.000-1.030); Urobilinogen Urine Negative (Negative); pH Urine 7.5 (4.5-7.5)
[2019-04-16] MEDS ORDERED: VANCOMYCIN CONSULT ACTIVE PRN (21:31)
[2019-04-16] MEDS ORDERED: PIPERACILLIN/TAZOBACTAM 4.5 GM/120 ML BAG IV ONE (21:31)
[2019-04-16] MEDS ORDERED: PIPERACILL/TAZOBAC CONSULT ACTIVE PRN (21:31)
[2019-04-16] MEDS ORDERED: VANCOMYCIN HCL 1,750 MG in SODIUM CHLORIDE 0.9% 500 ML IV ONE (21:31)
[2019-04-16] MEDS ORDERED: DiphenhydrAMINE HCL 50 MG/ML VIAL ONE (23:32)
[2019-04-17] MEDS ORDERED: PIPERACILL/TAZOBAC CONSULT ACTIVE PRN (00:55)
[2019-04-17] MEDS ORDERED: ALBUTEROL HFA 8 GM INHALER INH PRN (00:55)
[2019-04-17] MEDS: SODIUM CHLORIDE 0.9% 1000ML 1,000 ML IV SCH ×3 (01:53→17:12)
[2019-04-17] MEDS: LORazepam 0.5 MG/1 ML VIAL IV PRN ×2 (01:59→22:57)
[2019-04-17] MEDS: ACETAMINOPHEN 65 ML IV SCH ×3 (02:00→18:14)
--- NOTE | 2019-04-17 02:00 | History & Physical Report ---
Date of Service April 17, 2019 Assessment & Plan (1) Febrile illness: 33-year-old female with a SLE on Plaquenil presents with fevers, nausea/vomiting. She reports having abdominal pain for 1 week. She states that she discovered a subcutaneous lump inferior to umbilicus. The lump is tender with palpation. Admitted due to concern for immunocompromised state, history of MRSA skin infections. She describes a severe MRSA infection of her right distal extremity and gluteal cyst. Febrile illness UA, chest x-ray were negative for infection - Considering abdominal "mass-like density" as possible source - General surgery consult, appreciate recommendations Empiric abx treatment--Vanc/Zosyn - Follow IgG, IgA, IgM levels--screening for immunodefieciency - Follow blood cultures - NPO, converting available meds to IV SLE - Hold Plaquenil Hypothyroid - IV levothyroxine 75 mcg Anxiety/depression - Hold Prozac - PRN IV ativan Headaches in the setting undifferientiated brain lesion - Lesion is stable, receives q 6 MRI - Hold topiramate DVT - SCD Code -Full (2) Immunocompromised: (3) Lupus: (4) Anxiety disorder: (5) Depressive disorder: (6) Hypothyroidism: (7) Brain lesion: History of Present Illness Primary Care Provider: SURENDRA Estrella 33-year-old female with history of SLE on Plaquenil, depression, obesity status post gastric bypass, hypothyroidism, Sjogren's, and recurrent MRSA skin infections presents with fevers for 1 day. She also endorses having abdominal pain for 1 week and has discovered a small lump under her umbilicus. She kiki cribes having nausea and vomiting throughout the day. Patient states that she is been instructed by her primary care doctor to the emergency room because of her persistent skin infections in the past which have been resistant to oral antibiotics. She describes a severe MRSA infection of her right distal extremity and gluteal cyst. Patient denies shortness of breath, cough. She denies upper respiratory infection symptoms. She denies dysuria. Allergies Allergy/AdvReac Type Severity Reaction Status Date / Time No Known Allergies Allergy Verified 01/16/19 09:00 Home Medications Home Medications Medication Instructions Recorded Confirmed Type Vitamin B-12 50 mcg PO QAM 11/25/18 04/16/19 History albuterol sulfate [Ventolin HFA] 2 puff INHALATION Q6H PRN 11/25/18 04/16/19 History cholecalciferol (vitamin D3) 1,000 unit PO QAM 11/25/18 04/16/19 History [Vitamin D3] fluoxetine [Prozac] 80 mg PO QAM 11/25/18 04/16/19 History hydroxychloroquine [Plaquenil] 200 mg PO BID 11/25/18 04/16/19 History mometasone [Asmanex Twisthaler] 2 puff INHALATION BID PRN 01/16/19 04/16/19 History levothyroxine [Synthroid] 150 mcg PO DAILY 04/16/19 04/16/19 History lorazepam [Ativan] 0.5 mg PO BID PRN 04/16/19 04/16/19 History topiramate [Qudexy XR] 100 mg PO DAILY 04/16/19 04/16/19 History topiramate [Qudexy XR] 200 mg PO DAILY 04/16/19 04/16/19 History Past Med/Surg History Medical History Anemia Anxiety Brain lesion DX JUN 2014 - MONITORING - SCAN Q6M - NO CHANGES SINCE JUN 2014 Depression GERD (gastroesophageal reflux disease) History of colitis History of fatty infiltration of liver History of ovarian cyst Hypothyroidism Low ferritin Lupus Migraine Pleurisy Post traumatic stress disorder Surgical History History of section X 2 History of colonoscopy History of endometrial ablation History of esophagogastroduodenoscopy (EGD) History of foot surgery RT - HARDWARE PRESENT History of ovarian cystectomy History of removal of cyst History of sleeve gastrectomy History of tooth extraction Social History Preferred Language: Surinamese Communication Ability: Effective Real Estate Sales Agent Required: No Beliefs That Will Affect Care: None Current Living Situation: Family Current Living Situation Comment: AND TWO CHILDREN Other Information That Helps Us Care for You: No Feels Safe at Home: Yes Smoking Status: Never smoker Second Hand Exposure: No Hx Alcohol Use: Yes Alcohol type: hard liquor Hx Substance Use: No Review of Systems Review of Systems: All systems reviewed & are unremarkable except as noted in HPI & below Physical Exam Constitutional: WD/WN, vitals as above Eyes: PERRL, conjunctivae normal, anicteric sclerae ENMT: external ear and nose normal, oropharynx normal Neck: trachea midline, no thyromegaly Respiratory: normal respiratory effort, lungs clear to auscultation Cardiovascular: RRR, no murmur, no edema Gastrointestinal (Abdomen): normal bowel sounds, soft, nontender, no hepatosplenomegaly 2 cm small palpable subcutaneous mass inferior to the umbilicus, tenderness with palpation, no overlying erythema of the skin Musculoskeletal: no cyanosis or clubbing, extremities motor strength 5/5 Results & Data Vital Signs (Past 12 Hours) Vital Signs Temp Pulse Pulse Resp BP BP Pulse Ox 04/17/19 00:45 36.7 C 75 16 119/68 93 04/17/19 00:00 57 L 15 104/79 96 04/16/19 23:31 58 L 17 128/58 L 97 04/16/19 23:30 67 17 97 04/16/19 23:00 58 L 21 129/79 97 04/16/19 22:51 60 21 128/86 96 04/16/19 22:49 60 15 128/86 96 04/16/19 22:31 74 22 168/122 H 97 04/16/19 22:30 68 17 98 04/16/19 22:00 61 15 135/95 98 04/16/19 21:31 60 20 127/82 97 04/16/19 21:30 67 13 98 04/16/19 21:15 37.3 C 66 18 133/83 97 04/16/19 21:02 65 24 97 04/16/19 21:00 68 18 133/83 97 04/16/19 20:30 60 63 16 141/96 H 141/96 H 98 04/16/19 20:18 96 04/16/19 19:02 37.6 C H 79 16 160/84 H 96 Diagnostic Findings ABDOMEN AND PELVIS CT WITHOUT CONTRAST CT DOSE: 944.64 mGycm HISTORY: eval for hernia/mass lower abd on scar TECHNIQUE: Multiaxial CT images of the abdomen and pelvis were performed without contrast. A dose lowering technique was utilized adhering to the principles of ALARA. COMPARISON STUDY: Abdominal ultrasound 03/26/2018. FINDINGS: Within the subcutaneous fat of the lower left anterior abdominal wall there is a 2.6 x 2.4 cm soft tissue masslike density. This abuts the left rectus abdominus muscle. No hernia identified within the abdominal wall. The lung bases are clear. The unenhanced liver, gallbladder, pancreas, spleen, adrenal glands, and left kidney are unremarkable. There is an 8 mm hyperdense focus within the right kidney. No renal stones or hydronephrosis. No retroperitoneal lymphadenopathy. Postoperative changes within the proximal stomach. The bladder, uterus, and ovaries are unremarkable. Suboptimal evaluation for bowel pathology due to the lack of intravenous and oral contrast. However, there is no definite bowel wall thickening or obstruction. Normal appendix. IMPRESSION: Within the subcutaneous fat of the lower left anterior abdominal wall there is a 2.6 x 2.4 cm soft tissue masslike density. This abuts the anterior border of the left rectus abdominus muscle. No hernia identified within the abdominal wall. Electronically signed by: Suraj Avery M.D. 04/16/2019 8:16 PM Supervising Physician Co-Signing Physician Notes Attending addendum: I have physically seen this patient, have supervised the medical residents activities, and agree with the H&P unless as otherwise noted. Assessment and Plan: Febrile illness/relatively immunocompromised patient due to SLE- History of MRSA infections. History of multiple skin abnormalities. Order immunoglobulin assay. Follow blood cultures. Empiric treatment with vancomycin IV and Zosyn IV. IV fluids. Abdominal pain/abdominal lesion- General surgery consult. Remainder of orders and notations as noted.
[2019-04-17] MEDS: PIPERACILLIN/TAZOBACTAM 3.375 GM in DEXTROSE 5% 100 ML IV SCH ×3 (02:30→17:58)
[2019-04-17] MEDS ORDERED: LEVOTHYROXINE SODIUM 150 MCG TABLET PO SCH ×2 (09:00)
[2019-04-17] MEDS ORDERED: LEVOTHYROXINE SODIUM 75 MCG in SYRINGE 0 ML IV SCH (09:00)
[2019-04-17 09:02] LABS: Basophils # (auto) 0.03 K/uL (0-0.2); Basophils % (auto) 0.5 %; Hematocrit (blood only) 33.8 % (37-47); Hemoglobin 11.7 g/dL (12.0-16.0); Immature Granulocytes # (auto) 0.01 K/uL (0.00-0.02); Immature Granulocytes % (auto) 0.2 %; Lymphocytes # (auto) 2.21 K/uL (1.2-3.4); Lymphocytes % (auto) 33.6 %; Mean Corpuscular Hgb Conc 34.6 g/dL (32-36); Mean Corpuscular Volume 87.8 fL (80-100); Mean Platelet Volume 9.7 fL (7.4-10.4); Monocytes # (auto) 0.55 K/uL (0.11-0.59); Monocytes % (auto) 8.4 %; Neutrophils # (auto) 3.58 K/uL (1.4-6.5); Neutrophils % (auto) 54.3 %; Platelet Count 194 K/uL (130-400); RDW Coefficient of Variation 12.9 % (11.5-14.5); RDW Standard Deviation 41.7 fL (36.4-46.3); Red Blood Count 3.85 M/uL (4.2-5.4); White Blood Count 6.58 K/uL (4.8-10.8)
[2019-04-17 09:44] LABS: BUN Creatinine Ratio 10.8 (10-20); Calcium 7.9 mg/dl (8.5-10.1); Creatinine Clr Calc Pharmacy 109.7 ml/min; Est GFR (African American) 103.6; Est GFR (Non-African American) 89.4; Potassium 3.6 mmol/L (3.5-5.1)
[2019-04-17 09:53] LABS: Bilirubin,Total 0.6 mg/dl (0.2-1); Globulin 2.9 gm/dl (2.5-4.0); Immunoglobulin M 87.1 mg/dl (40-230); Total Protein 5.9 gm/dl (6.4-8.2)
--- NOTE | 2019-04-17 10:07 | Pharmacy Report ---
Pharmacy Abx Initial Consult - Date of Service April 17, 2019 - Pharmacy Dosing Scope Date of Consult: 04/17/19 Consultation requested by: Toño Hawkins Pharmacy is consulted to initiate Vancomycin IV dosing therapy, order appropriate labs and adjust drug dose/frequency. - Subjective The patient is a 33 year old F admitted on 04/16/19 23:39. - Objective Height: 5 ft 8 in Weight: 90.4 kg Vital Signs (Past 12hrs): Vital Signs Temp Pulse Pulse Resp BP BP Pulse Ox 04/17/19 07:02 36.6 C 53 L 20 109/74 97 04/17/19 00:45 36.7 C 75 16 119/68 93 04/17/19 00:00 57 L 15 104/79 96 04/16/19 23:31 58 L 17 128/58 L 97 04/16/19 23:30 67 17 97 04/16/19 23:00 58 L 21 129/79 97 04/16/19 22:51 60 21 128/86 96 04/16/19 22:49 60 15 128/86 96 04/16/19 22:31 74 22 168/122 H 97 04/16/19 22:30 68 17 98 04/16/19 22:00 61 15 135/95 98 Lab Results (24hrs): Laboratory Tests (24 Hours) 04/17/19 04/17/19 04/16/19 08:35 08:35 20:06 WBC 6.58 Neut # (Auto) 3.58 Creatinine 0.85 0.79 Est Cr Clr Drug Dosing 109.7 118.6 04/16/19 20:06 WBC 7.04 Neut # (Auto) 4.38 Creatinine Est Cr Clr Drug Dosing Micro Results: 04/16/19 20:20 Aerobic Blood Culture - Pending Blood Anaerobic Blood Culture - Pending 04/16/19 20:06 Aerobic Blood Culture - Pending Blood Anaerobic Blood Culture - Pending - Risk Factors for Resistance * Immunocompromised (immunomodulators)- patient is taking Plaquenil for SLE * History of infection with a multidrug-resistant organism: recurrent MRSA skin infections. - Assessment & Plan Assessment 33 year old F admitted with fever and abdominal cellulitis yesterday. She has had recurrent MRSA skin infections in the past. She is on Plaquenil which is an immuno-suppressant. Pharmacy consulted to dose Vanco and Zosyn. Blood cultures are pending currently. Plan Vancomycin and Zosyn for treatment of cellulitis. Vancomycin IV * Estimated PK Parameters: Vd 0.6 L/kg, Renaldo 0.102 hr-1, t1/2 6.8 hr * Loading dose: 1750 mg (19.3 mg/kg) x 1 dose given yesterday night at 2246 * Maintenance dose: 1500 mg IV (16.6 mg/kg) every 10 hours started this AM at 1000. * Goal trough level for SSTI: 12 to 20 mcg/mL * Trough Vanco level ordered for 04/18/19 before dose at 1600 (that is after 3 maintenance doses). Piperacillin/tazobactam * 4.5 g bolus administered over 30 minutes, then 3.375 g IV extended infusion every 8 hours for CrCl greater than 20 mL/min. Pharmacy will continue to follow and will adjust dose/frequency as necessary. Thank you.
[2019-04-17] MEDS: VANCOMYCIN HCL 1,500 MG in SODIUM CHLORIDE 0.9% 500 ML IV SCH ×2 (12:57→21:54)
--- NOTE | 2019-04-17 13:12 | Surgery Consultation ---
Date of Consultation April 17, 2019 Assessment & Plan (1) Subcutaneous mass: Will plan for excision of subcutaneous mass of abdominal wall this afternoon in the OR. as above. unclear etiology? discussed options/risks ( bleeding/infection/dvt/pe etc...) questions answered. will excise today in OR. History of Present Illness Attending Physician: Prashant Huang MD History of Present Illness 33 y/o female with painful lump lower abdomen along scar for the past week. She had fever, N/V yesterday and came to the ED for concern of MRSA history and previous skin infections. Allergies Allergy/AdvReac Type Severity Reaction Status Date / Time No Known Allergies Allergy Verified 01/16/19 09:00 Home Medications Home Medications Medication Instructions Recorded Confirmed Type Vitamin B-12 50 mcg PO QAM 11/25/18 04/16/19 History albuterol sulfate [Ventolin HFA] 2 puff INHALATION Q6H PRN 11/25/18 04/16/19 History cholecalciferol (vitamin D3) 1,000 unit PO QAM 11/25/18 04/16/19 History [Vitamin D3] fluoxetine [Prozac] 80 mg PO QAM 11/25/18 04/16/19 History hydroxychloroquine [Plaquenil] 200 mg PO BID 11/25/18 04/16/19 History mometasone [Asmanex Twisthaler] 2 puff INHALATION BID PRN 01/16/19 04/16/19 History levothyroxine [Synthroid] 150 mcg PO DAILY 04/16/19 04/16/19 History lorazepam [Ativan] 0.5 mg PO BID PRN 04/16/19 04/16/19 History topiramate [Qudexy XR] 100 mg PO DAILY 04/16/19 04/16/19 History topiramate [Qudexy XR] 200 mg PO DAILY 04/16/19 04/16/19 History Patient History Medical History Anemia Anxiety Brain lesion DX JUN 2014 - MONITORING - SCAN Q6M - NO CHANGES SINCE JUN 2014 Depression GERD (gastroesophageal reflux disease) History of colitis History of fatty infiltration of liver History of ovarian cyst Hypothyroidism Low ferritin Lupus Migraine Pleurisy Post traumatic stress disorder Surgical History History of section X 2 History of colonoscopy History of endometrial ablation History of esophagogastroduodenoscopy (EGD) History of foot surgery RT - HARDWARE PRESENT History of ovarian cystectomy History of removal of cyst History of sleeve gastrectomy History of tooth extraction Social History Preferred Language: Yoruba Communication Ability: Effective Military Analyst Required: No Beliefs That Will Affect Care: None Current Living Situation: Family Current Living Situation Comment: AND TWO CHILDREN Other Information That Helps Us Care for You: No Feels Safe at Home: Yes Smoking Status: Never smoker Second Hand Exposure: No Hx Alcohol Use: Yes Alcohol type: hard liquor Hx Substance Use: No Review of Systems Constitutional: + fever Gastrointestinal: + nausea and + vomiting Physical Exam Constitutional: WD/WN, vitals as above Gastrointestinal (Abdomen): Inspection/Auscultation: abdomen normal to inspection Percussion/Palpation: + abdominal mass (3 cm mass along pfannenstiel incision left of midline, tender, no erythema) Results & Data Vital Signs (Past 12 Hours) Vital Signs Temp Pulse Resp BP Pulse Ox 04/17/19 07:02 36.6 C 53 L 20 109/74 97 Diagnostic Findings ABDOMEN AND PELVIS CT WITHOUT CONTRAST CT DOSE: 944.64 mGycm HISTORY: eval for hernia/mass lower abd on scar TECHNIQUE: Multiaxial CT images of the abdomen and pelvis were performed without contrast. A dose lowering technique was utilized adhering to the principles of ALARA. COMPARISON STUDY: Abdominal ultrasound 03/26/2018. FINDINGS: Within the subcutaneous fat of the lower left anterior abdominal wall there is a 2.6 x 2.4 cm soft tissue masslike density. This abuts the left rectus abdominus muscle. No hernia identified within the abdominal wall. The lung bases are clear. The unenhanced liver, gallbladder, pancreas, spleen, adrenal glands, and left kidney are unremarkable. There is an 8 mm hyperdense focus within the right kidney. No renal stones or hydronephrosis. No retroperitoneal lymphadenopathy. Postoperative changes within the proximal stomach. The bladder, uterus, and ovaries are unremarkable. Suboptimal evaluation for bowel pathology due to the lack of intravenous and oral contrast. However, there is no definite bowel wall thickening or obstruction. Normal appendix. IMPRESSION: Within the subcutaneous fat of the lower left anterior abdominal wall there is a 2.6 x 2.4 cm soft tissue masslike density. This abuts the anterior border of the left rectus abdominus muscle. No hernia identified within the abdominal wall. Electronically signed by: Suraj Avery M.D. 04/16/2019 8:16 PM
--- NOTE | 2019-04-17 14:18 | Anesthesiology Consultation ---
Date of Service April 17, 2019 Assessment & Plan Chart Review Chart Review: Acceptable Risk for Surgery and Patient NOT seen in Pre Admission Testing Consults Requested none ASA ASA3 Proposed Anesthesia Anesthesia Type: General Risk / Benefits Reviewed With: PT / POA / Parent / Guardian, Accepts Plan and Informed Consent Obtained History Surgery Operation Date: 04/17/19 13:10 Proposed Procedures p Excision of Abdominal Wall Mass - Kobe Mae, DO Height/Weight Height: 5 ft 8 in Weight: 90.4 kg Allergies Allergy/AdvReac Type Severity Reaction Status Date / Time No Known Allergies Allergy Verified 01/16/19 09:00 Medications Home Medications Medication Instructions Recorded Confirmed Last Taken Vitamin B-12 50 mcg PO QAM 11/25/18 04/16/19 12/05/18 albuterol sulfate [Ventolin HFA] 2 puff INHALATION Q6H PRN 11/25/18 04/16/19 12/05/18 cholecalciferol (vitamin D3) 1,000 unit PO QAM 11/25/18 04/16/19 12/05/18 [Vitamin D3] fluoxetine [Prozac] 80 mg PO QAM 11/25/18 04/16/19 12/05/18 hydroxychloroquine [Plaquenil] 200 mg PO BID 11/25/18 04/16/19 12/05/18 mometasone [Asmanex Twisthaler] 2 puff INHALATION BID PRN 01/16/19 04/16/19 Unknown levothyroxine [Synthroid] 150 mcg PO DAILY 04/16/19 04/16/19 Unknown lorazepam [Ativan] 0.5 mg PO BID PRN 04/16/19 04/16/19 Unknown topiramate [Qudexy XR] 100 mg PO DAILY 04/16/19 04/16/19 Unknown topiramate [Qudexy XR] 200 mg PO DAILY 04/16/19 04/16/19 Unknown Active Medications Generic Name Dose Route Start Last Admin Trade Name Freq PRN Reason Stop Dose Admin Diphenhydramine HCl 25 mg 04/17/19 12:30 04/17/19 12:30 Benadryl Capsule PO 05/17/19 12:29 25 mg Q10H PRN Administration before vancomycin Acetaminophen 65 mls @ 200 mls/hr 04/17/19 02:00 04/17/19 10:48 Ofirmev IV 05/17/19 01:59 Infused Q8H BEATRICE Infusion Piperacillin Sod/Tazobactam 115 mls @ 28.75 mls/hr 04/17/19 02:00 04/17/19 10:55 Sod 3.375 gm/ Dextrose IV 04/27/19 01:59 28.8 mls/hr Q8H BEATRICE Administration Protocol Lorazepam 0.5 mg in 1 mls @ 1 mls/min 04/17/19 00:55 04/17/19 01:59 Ativan IV 05/17/19 00:54 1 mls/min Q4H PRN Administration Anxiety Levothyroxine Sodium 75 mcg/ 3.75 mls @ 2 mls/min 04/17/19 09:00 04/17/19 10:24 Syringe IV 05/17/19 08:59 2 mls/min DAILY@0900 BEATRICE Administration Sodium Chloride 1,000 mls @ 100 mls/hr 04/17/19 00:55 04/17/19 10:54 Nss 1000ml IV 05/17/19 00:54 100 mls/hr .Q10H BEATRICE Administration Vancomycin HCl 1,500 mg/ 530 mls @ 175 mls/hr 04/17/19 10:00 04/17/19 12:57 Sodium Chloride IV 04/27/19 09:59 175 mls/hr Q10H BEATRICE Administration Protocol Miscellaneous 1 ea 04/17/19 08:00 04/17/19 08:38 Order Awaiting Action N/A 05/17/19 07:59 Not Given QS BEATRICE NPO Date Last Intake of Fluids: 04/17/19 Time Last Intake of Fluids: 12:30 Last Intake of Fluids Comment: sip of water with pill Date Last Intake of Solids: 04/16/19 Past Medical History Medical History Anemia Anxiety Brain lesion DX JUN 2014 - MONITORING - SCAN Q6M - NO CHANGES SINCE JUN 2014 Depression GERD (gastroesophageal reflux disease) History of colitis History of fatty infiltration of liver History of ovarian cyst Hypothyroidism Low ferritin Lupus Migraine Pleurisy Post traumatic stress disorder Exercise / Class Metabolic Activity II 4-5 Yardwork/Stairs/Walk up hill Past Surgical History Surgical History History of section X 2 History of colonoscopy History of endometrial ablation History of esophagogastroduodenoscopy (EGD) History of foot surgery RT - HARDWARE PRESENT History of ovarian cystectomy History of removal of cyst History of sleeve gastrectomy History of tooth extraction Past Anesthesia History No Hx of Anesthesia Complications and No Family Hx of Anesthesia Complications History of PONV No Hx of PONV and No Hx of Motion Sickness Social History Smoking Status: Never smoker Hx Alcohol Use: Yes Alcohol type: hard liquor alcohol intake frequency: holidays/special occasions only Hx Substance Use: No substance use type: does not use Physical Exam Vital Signs Last Vital Signs Temp 36.6 C 04/17/19 07:02 Pulse 53 L 04/17/19 07:02 Resp 20 04/17/19 07:02 BP 109/74 04/17/19 07:02 Pulse Ox 97 04/17/19 07:02 Constitutional + obese ENMT Mouth: no dentition abnormality Thyromental Distance: > or= 3.5 Finger Breadths Mallampati Class: II Neck normal visual inspection and trachea midline; neck extension not limited Respiratory normal respiratory effort Auscultation: lungs clear to auscultation bilaterally Cardiovascular Rate/Rhythm: regular rate and regular rhythm Heart Sounds: no murmur Musculoskeletal Spine: normal cervical ROM Neurologic moves all extremities Motor/Sensory: no sensory deficit Psychiatric Orientation: alert and oriented x 3
[2019-04-17] MEDS ORDERED: MIDAZOLAM HCL 1 MG/ML 2ML VIAL ONE (14:22)
[2019-04-17] MEDS ORDERED: fentaNYL citrate 100 MCG/2 ML VIAL ONE (14:22)
[2019-04-17] MEDS ORDERED: FLUMAZENIL 0.1 MG/1 ML 10 ML VIAL IV PRN (14:49)
[2019-04-17] MEDS ORDERED: NALOXONE HCL 0.4 MG/1 ML VIAL/CARP IV PRN (14:49)
[2019-04-17] MEDS ORDERED: ATROPINE SULFATE 0.1 MG/ML 10ML SYR IV PRN (14:49)
[2019-04-17] MEDS ORDERED: LABETALOL HCL IV 5 MG/ML 20ML IV PRN (14:49)
[2019-04-17] MEDS ORDERED: PROMETHAZINE HCL 12.5 MG in SODIUM CHLORIDE 0.9% 50 ML IV PRN (14:49)
[2019-04-17] MEDS ORDERED: ONDANSETRON INJ 2 MG/ML 2 ML VIAL IV PRN (14:49)
[2019-04-17] MEDS ORDERED: ePHEDrine sulfate 50 MG/ML AMP IV PRN (14:49)
--- NOTE | 2019-04-17 14:57 | Emergency Department Note ---
Entered by Danna Garcia acting as a scribe for Kwame Butler MD History of Present Illness General Chief complaint: Vomiting Stated complaint: LUMP ON ABD, CHILLS, VOMITTING, NAUSEA Time Seen by Provider: 04/16/19 19:28 Source: patient History of Present Illness Provider complaint: abdominal pain Onset (ago): hour(s) (SENIOR OFFICE SUPPORT ASSISTANT SOSA) Location: abdomen Pain Consistency: + other (worsening) Maximum Pain Intensity: 6 Associated symptoms: + fever/chills (+chills, -fever), + nausea/vomiting and + other (+diarrhea, mass growth on abdomen) Treatments prior to arrival: none The patient is a 33 year old female who presents to the Emergency Room with complaints of worsening abdominal pain.The patient states that she has felt weakness lately and that she has noticed a growing mass on her lower abdomen. She states that the lump on her abdomen has been tender and was noticed a week ago but has significantly worsened today. She states that she has been experiencing vomiting, chills, nausea, diarrhea, but denies any abnormal fever. The patient reports that she is not currently . She states that she h as a history of endometriosis, gastric sleeve surgery, ovary cyst removal surgery, and two previous sections. She reports that he urine has been cloudy recently. The patient states that she did not take any medication prior to arrival. Home Medications Home Medications Medication Instructions Recorded Confirmed Type Vitamin B-12 50 mcg PO QAM 11/25/18 04/16/19 History albuterol sulfate [Ventolin HFA] 2 puff INHALATION Q6H PRN 11/25/18 04/16/19 History cholecalciferol (vitamin D3) 1,000 unit PO QAM 11/25/18 04/16/19 History [Vitamin D3] fluoxetine [Prozac] 80 mg PO QAM 11/25/18 04/16/19 History hydroxychloroquine [Plaquenil] 200 mg PO BID 11/25/18 04/16/19 History mometasone [Asmanex Twisthaler] 2 puff INHALATION BID PRN 01/16/19 04/16/19 History levothyroxine [Synthroid] 150 mcg PO DAILY 04/16/19 04/16/19 History lorazepam [Ativan] 0.5 mg PO BID PRN 04/16/19 04/16/19 History topiramate [Qudexy XR] 100 mg PO DAILY 04/16/19 04/16/19 History topiramate [Qudexy XR] 200 mg PO DAILY 04/16/19 04/16/19 History Allergies Allergy/AdvReac Type Severity Reaction Status Date / Time No Known Allergies Allergy Verified 01/16/19 09:00 Past Med/Surg History Medical History Anemia Anxiety Brain lesion DX JUN 2014 - MONITORING - SCAN Q6M - NO CHANGES SINCE JUN 2014 Depression GERD (gastroesophageal reflux disease) History of colitis History of fatty infiltration of liver History of ovarian cyst Hypothyroidism Low ferritin Lupus Migraine Pleurisy Post traumatic stress disorder Surgical History History of section X 2 History of colonoscopy History of endometrial ablation History of esophagogastroduodenoscopy (EGD) History of foot surgery RT - HARDWARE PRESENT History of ovarian cystectomy History of removal of cyst History of sleeve gastrectomy History of tooth extraction Social History Preferred Language: Jamaican Communication Ability: Effective White Shoe Ragger Required: No Beliefs That Will Affect Care: None Current Living Situation: Family Current Living Situation Comment: AND TWO CHILDREN Other Information That Helps Us Care for You: No Feels Safe at Home: Yes Smoking Status: Never smoker Second Hand Exposure: No Hx Alcohol Use: Yes Alcohol type: hard liquor Hx Substance Use: No Review of Systems See HPI for pertinent positives & negatives. and A total of 10 systems reviewed and were otherwise negative Physical Exam Vital Signs Vital Signs - 24 hr 04/16/19 19:02 04/16/19 20:18 04/16/19 20:30 Temperature 37.6 C H Temperature Source Oral Sepsis Recent Fever Within 48 Hours No Sepsis Action Taken by Nursing No Action Required Pulse Rate 79 60 Pulse Rate [Apical] 63 Pulse Rate from SpO2 Sensor 57 L Respiratory Rate 16 16 Respiratory Effort / Characteristics Non-Labored Spontaneous Respiratory Depth Normal Respiratory Pattern Regular Blood Pressure 160/84 H 141/96 H Blood Pressure [Left Arm] 141/96 H Blood Pressure Mean 109 111 Blood Pressure Mean [Left Arm] 111 Blood Pressure Position Sitting Pulse Oximetry 96 96 98 Oxygen Delivery Method Room Air Room Air Room Air 04/16/19 21:00 04/16/19 21:02 04/16/19 21:15 Temperature 37.3 C Temperature Source Oral Sepsis Recent Fever Within 48 Hours Sepsis Action Taken by Nursing Pulse Rate 68 65 Pulse Rate [Apical] 66 Pulse Rate from SpO2 Sensor 66 64 Respiratory Rate 18 24 18 Respiratory Effort / Characteristics Respiratory Depth Normal Respiratory Pattern Blood Pressure 133/83 Blood Pressure [Left Arm] 133/83 Blood Pressure Mean 99 Blood Pressure Mean [Left Arm] 99 Blood Pressure Position Pulse Oximetry 97 97 97 Oxygen Delivery Method Room Air 04/16/19 21:30 04/16/19 21:31 04/16/19 22:00 Temperature Temperature Source Sepsis Recent Fever Within 48 Hours Sepsis Action Taken by Nursing Pulse Rate 67 60 61 Pulse Rate [Apical] Pulse Rate from SpO2 Sensor 64 60 62 Respiratory Rate 13 20 15 Respiratory Effort / Characteristics Respiratory Depth Respiratory Pattern Blood Pressure 127/82 135/95 Blood Pressure [Left Arm] Blood Pressure Mean 97 108 Blood Pressure Mean [Left Arm] Blood Pressure Position Pulse Oximetry 98 97 98 Oxygen Delivery Method 04/16/19 22:30 04/16/19 22:31 04/16/19 22:49 Temperature Temperature Source Sepsis Recent Fever Within 48 Hours Sepsis Action Taken by Nursing Pulse Rate 68 74 Pulse Rate [Apical] 60 Pulse Rate from SpO2 Sensor 68 74 Respiratory Rate 17 22 15 Respiratory Effort / Characteristics Respiratory Depth Respiratory Pattern Blood Pressure 168/122 H Blood Pressure [Left Arm] 128/86 Blood Pressure Mean 137 Blood Pressure Mean [Left Arm] 100 Blood Pressure Position Pulse Oximetry 98 97 96 Oxygen Delivery Method Room Air 04/16/19 22:51 04/16/19 23:00 04/16/19 23:30 Temperature Temperature Source Sepsis Recent Fever Within 48 Hours Sepsis Action Taken by Nursing Pulse Rate 60 58 L 67 Pulse Rate [Apical] Pulse Rate from SpO2 Sensor 60 58 L 66 Respiratory Rate 21 21 17 Respiratory Effort / Characteristics Respiratory Depth Respiratory Pattern Blood Pressure 128/86 129/79 Blood Pressure [Left Arm] Blood Pressure Mean 100 95 Blood Pressure Mean [Left Arm] Blood Pressure Position Pulse Oximetry 96 97 97 Oxygen Delivery Method 04/16/19 23:31 Temperature Temperature Source Sepsis Recent Fever Within 48 Hours Sepsis Action Taken by Nursing Pulse Rate 58 L Pulse Rate [Apical] Pulse Rate from SpO2 Sensor 59 L Respiratory Rate 17 Respiratory Effort / Characteristics Respiratory Depth Respiratory Pattern Blood Pressure 128/58 L Blood Pressure [Left Arm] Blood Pressure Mean 81 Blood Pressure Mean [Left Arm] Blood Pressure Position Pulse Oximetry 97 Oxygen Delivery Method General: Non-ill appearing middle age female in no acute distress. HEENT: Normal cephalic atraumatic. Pupils are equal round and reactive to light. Extraocular movements are intact. Oropharynx is pink with moist mucous membranes. No swelling of the mouth lips or tongue. Neck: Supple with a midline trachea. No meningeal signs or stiffness, no JVD or bruits. No Stridor. Chest: Clear to auscultation bilaterally. No wheezes or rhonchi. No increased work of breathing. Heart: regular rate and rhythm. Abdomen: Post scar in lower abdomen. Small indurated area central no red or warm. Tender. Soft, nondistended without rebound guarding or rigidity. Extremities: No cyanosis clubbing or edema. No calf tenderness or asymmetry Spine/Back. Non tender to palpation. No CVA tenderness Skin: Good turgor without rashes. Neurologic exam: Cranial nerves two through 12 are intact. Motor and sensation are intact and symmetrical throughout. Course 1929: The patient was evaluated in room [facility], and a complete history and physical examination were performed. 1941: I discussed the patient's case with Dr. Giovanny Singh Hospitalist, he will further evaluate the patient. 2139: [facility] where he will further evaluate the patient. Reevaluation(s) Reevaluation #1: Dr. Giovanny Singh Hospitalist Time: 19:42 Reevaluation #2: Dr. Servin [facility] Hospitalist Time: 21:40 Administered Medications Diphenhydramine HCl (Benadryl Capsule) 25 mg PO Q10H PRN PRN Reason: before vancomycin Stop: 05/17/19 12:29 Last Admin: 04/17/19 12:30 Dose: 25 mg Documented by: [id number] Acetaminophen (Ofirmev) 65 mls @ 200 mls/hr IV Q8H BEATRICE Stop: 05/17/19 01:59 Last Infusion: 04/17/19 10:48 Dose: 0 mls/hr Documented by: [id number] Admin: 04/17/19 10:25 Dose: 200 mls/hr Documented by: [id number] Infusion: 04/17/19 02:20 Dose: 0 mls/hr Documented by: [id number] Admin: 04/17/19 02:00 Dose: 200 mls/hr Documented by: [id number] Piperacillin Sod/Tazobactam (Sod 3.375 gm/ Dextrose) 115 mls @ 28.75 mls/hr IV Q8H BEATRICE; Protocol Stop: 04/27/19 01:59 Last Admin: 04/17/19 10:55 Dose: 28.8 mls/hr Documented by: [id number] Infusion: 04/17/19 07:57 Dose: 0 mls/hr Documented by: [id number] Admin: 04/17/19 02:30 Dose: 28.8 mls/hr Documented by: [id number] Lorazepam (Ativan) 0.5 mg in 1 mls @ 1 mls/min IV Q4H PRN PRN Reason: Anxiety Stop: 05/17/19 00:54 Last Admin: 04/17/19 01:59 Dose: 1 mls/min Documented by: [id number] Levothyroxine Sodium 75 mcg/ (Syringe) 3.75 mls @ 2 mls/min IV DAILY@0900 BEATRICE Stop: 05/17/19 08:59 Last Admin: 04/17/19 10:24 Dose: 2 mls/min Documented by: [id number] Sodium Chloride (Nss 1000ml) 1,000 mls @ 100 mls/hr IV .Q10H BEATRICE Stop: 05/17/19 00:54 Last Admin: 04/17/19 10:54 Dose: 100 mls/hr Documented by: [id number] Infusion: 04/17/19 10:54 Dose: 100 mls/hr Documented by: [id number] Admin: 04/17/19 01:53 Dose: 100 mls/hr Documented by: [id number] Vancomycin HCl 1,500 mg/ (Sodium Chloride) 530 mls @ 175 mls/hr IV Q10H BEATRICE; Protocol Stop: 04/27/19 09:59 Last Admin: 04/17/19 12:57 Dose: 175 mls/hr Documented by: [id number] Miscellaneous (Order Awaiting Action) 1 ea N/A QS BEATRICE Stop: 05/17/19 07:59 Last Admin: 04/17/19 08:38 Dose: Not Given Documented by: [id number] Discontinued Medications Diphenhydramine HCl (Benadryl) Confirm Administered Dose 50 mg .ROUTE .STK-MED ONE Stop: 04/16/19 23:33 Last Admin: 04/16/19 23:36 Dose: 25 mg Documented by: [id number] Piperacillin Sod/Tazobactam Sod (Zosyn) 4.5 gm in 120 mls @ 240 mls/hr IV NOW ONE Stop: 04/16/19 22:00 Last Infusion: 04/16/19 22:14 Dose: 0 mls/hr Documented by: [id number] Admin: 04/16/19 21:44 Dose: 240 mls/hr Documented by: [id number] Vancomycin HCl 1,750 mg/ (Sodium Chloride) 535 mls @ 200 mls/hr IV NOW ONE; Protocol Stop: 04/17/19 00:11 Last Infusion: 04/17/19 01:54 Dose: 0 mls/hr Documented by: [id number] Admin: 04/16/19 22:46 Dose: 200 mls/hr Documented by: [id number] Medical Decision Making Differential Diagnosis Differential's include hernia, abscess, sepsis, lupus complication, electrolyte abnormalities, and metabolic derangement. Medical Records Attestation: I reviewed the patient's medical records. Home Medications Current Medication List: was personally reviewed by me Laboratory Data Attestation: I reviewed the patient's lab results. Result diagrams: 04/17/19 08:35 04/17/19 08:35 Lab Results 04/16/19 04/16/19 04/16/19 Range/Units 20:06 20:06 20:06 WBC 7.04 (4.8-10.8) K/uL RBC 4.19 L (4.2-5.4) M/uL Hgb 12.9 (12.0-16.0) g/dL Hct 36.6 L (37-47) % MCV 87.4 (80-100) fL MCH 30.8 (25-34) pg MCHC 35.2 (32-36) g/dL RDW Std Deviation 41.6 (36.4-46.3) fL RDW Coeff of Kris 12.9 (11.5-14.5) % Plt Count 231 (130-400) K/uL MPV 9.5 (7.4-10.4) fL Immature Gran % (Auto) 0.1 % Neut % (Auto) 62.3 % Lymph % (Auto) 30.3 % Creek % (Auto) 5.1 % Eos % (Auto) 1.8 % Baso % (Auto) 0.4 % Immature Gran # (Auto) 0.01 (0.00-0.02) K/uL Neut # (Auto) 4.38 (1.4-6.5) K/uL Lymph # (Auto) 2.13 (1.2-3.4) K/uL Creek # (Auto) 0.36 (0.11-0.59) K/uL Eos # (Auto) 0.13 (0-0.5) K/uL Baso # (Auto) 0.03 (0-0.2) K/uL PT 10.1 (9.0-12.0) Seconds INR 1.0 (0.9-1.1) APTT 26.2 (21.0-31.0) Seconds PTT Ratio 1.0 Sodium 144 (136-145) mmol/L Potassium 3.6 (3.5-5.1) mmol/L Chloride 113 H (98-107) mmol/L Carbon Dioxide 23 (21-32) mmol/L Anion Gap 8.0 (3-11) BUN 9 (7-18) mg/dl Creatinine 0.79 (0.6-1.2) mg/dl Est Cr Clr Drug Dosing 118.6 ml/min Est GFR ( Amer) 113.2 Est GFR (Non-Af Amer) 97.7 BUN/Creatinine Ratio 11.3 (10-20) Glucose 86 (70-99) mg/dl Lactate (0.4-2.0) mmol/L Calcium 8.8 (8.5-10.1) mg/dl Total Bilirubin 0.3 (0.2-1) mg/dl AST 11 L (15-37) U/L ALT 18 (12-78) U/L Alkaline Phosphatase 75 (45-117) U/L Total Protein 6.7 (6.4-8.2) gm/dl Albumin 3.6 (3.4-5.0) gm/dl Globulin 3.1 (2.5-4.0) gm/dl Albumin/Globulin Ratio 1.2 (0.9-2) Lipase 112 (73-393) U/L Urine Color Urine Appearance (Clear) Urine pH (4.5-7.5) Ur Specific [place] (1.000-1.030) Urine Protein (Negative) Urine Glucose (UA) (Negative) Urine Ketones (Negative) Urine Blood (Negative) Urine Nitrite (Negative) Urine Bilirubin (Negative) Urine Urobilinogen (Negative) Ur Leukocyte Esterase (Negative) Urine WBC (Auto) (0-5) /hpf Urine RBC (Auto) (0-4) /hpf U Hyaline Cast (Auto) (0-5) /lpf U Epithel Cells (Auto) (0-5) /lpf Urine Bacteria (Auto) (Negative) 04/16/19 04/16/19 Range/Units 20:06 20:20 WBC (4.8-10.8) K/uL RBC (4.2-5.4) M/uL Hgb (12.0-16.0) g/dL Hct (37-47) % MCV (80-100) fL MCH (25-34) pg MCHC (32-36) g/dL RDW Std Deviation (36.4-46.3) fL RDW Coeff of Kris (11.5-14.5) % Plt Count (130-400) K/uL MPV (7.4-10.4) fL Immature Gran % (Auto) % Neut % (Auto) % Lymph % (Auto) % Creek % (Auto) % Eos % (Auto) % Baso % (Auto) % Immature Gran # (Auto) (0.00-0.02) K/uL Neut # (Auto) (1.4-6.5) K/uL Lymph # (Auto) (1.2-3.4) K/uL Creek # (Auto) (0.11-0.59) K/uL Eos # (Auto) (0-0.5) K/uL Baso # (Auto) (0-0.2) K/uL PT (9.0-12.0) Seconds INR (0.9-1.1) APTT (21.0-31.0) Seconds PTT Ratio Sodium (136-145) mmol/L Potassium (3.5-5.1) mmol/L Chloride (98-107) mmol/L Carbon Dioxide (21-32) mmol/L Anion Gap (3-11) BUN (7-18) mg/dl Creatinine (0.6-1.2) mg/dl Est Cr Clr Drug Dosing ml/min Est GFR ( Amer) Est GFR (Non-Af Amer) BUN/Creatinine Ratio (10-20) Glucose (70-99) mg/dl Lactate 0.7 (0.4-2.0) mmol/L Calcium (8.5-10.1) mg/dl Total Bilirubin (0.2-1) mg/dl AST (15-37) U/L ALT (12-78) U/L Alkaline Phosphatase (45-117) U/L Total Protein (6.4-8.2) gm/dl Albumin (3.4-5.0) gm/dl Globulin (2.5-4.0) gm/dl Albumin/Globulin Ratio (0.9-2) Lipase (73-393) U/L Urine Color Yellow Urine Appearance Cloudy A (Clear) Urine pH 7.5 (4.5-7.5) Ur Specific [place] 1.018 (1.000-1.030) Urine Protein Negative (Negative) Urine Glucose (UA) Negative (Negative) Urine Ketones Trace H (Negative) Urine Blood Negative (Negative) Urine Nitrite Negative (Negative) Urine Bilirubin Negative (Negative) Urine Urobilinogen Negative (Negative) Ur Leukocyte Esterase Negative (Negative) Urine WBC (Auto) 1-5 (0-5) /hpf Urine RBC (Auto) 0-4 (0-4) /hpf U Hyaline Cast (Auto) 1-5 (0-5) /lpf U Epithel Cells (Auto) 10-20 H (0-5) /lpf Urine Bacteria (Auto) Negative (Negative) Imaging Data Radiologist's Impression: Radiology results as stated below per my review and the radiologist's interpretation: XR chest 1V portable HISTORY: Sepsis COMPARISON: Chest 05/23/2016. FINDINGS: The lungs are clear. Cardiac silhouette is normal in size. No pleural effusions. No pneumothorax. IMPRESSION: No acute process. Electronically signed by: Suraj Avery M.D. 04/16/2019 8:33 PM ABDOMEN AND PELVIS CT WITHOUT CONTRAST CT DOSE: 944.64 mGycm HISTORY: eval for hernia/mass lower abd on scar TECHNIQUE: Multiaxial CT images of the abdomen and pelvis were performed without contrast. A dose lowering technique was utilized adhering to the principles of ALARA. COMPARISON STUDY: Abdominal ultrasound 03/26/2018. FINDINGS: Within the subcutaneous fat of the lower left anterior abdominal wall there is a 2.6 x 2.4 cm soft tissue masslike density. This abuts the left rectus abdominus muscle. No hernia identified within the abdominal wall. The lung bases are clear. The unenhanced liver, gallbladder, pancreas, spleen, adrenal glands, and left kidney are unremarkable. There is an 8 mm hyperdense focus within the right kidney. No renal stones or hydronephrosis. No retroperitoneal lymphadenopathy. Postoperative changes within the proximal stomach. The bladder, uterus, and ovaries are unremarkable. Suboptimal evaluation for bowel pathology due to the lack of intravenous and oral contrast. However, there is no definite bowel wall thickening or obstruction. Normal appendix. IMPRESSION: Within the subcutaneous fat of the lower left anterior abdominal wall there is a 2.6 x 2.4 cm soft tissue masslike density. This abuts the anterior border of the left rectus abdominus muscle. No hernia identified within the abdominal wall. Electronically signed by: Suraj Avery M.D. 04/16/2019 8:16 PM Blood Pressure Blood Pressure Findings: Normal blood pressure MDM Narrative This patient comes in as described above. She was placed in room C 12. She is here for treatment and evaluation of lower abdominal pain/mass. She also has had a low-grade temperature as well. She does have a very complex medical history and has a history of lupus and immunocompromise state. She is also got significant infections in the past including significant and endometritis, MRSA as well as soft tissue infection in her right leg. She tells me that she does not respond to oral antibiotics and tends to get sick when she gets an infection. She does not typically get a fever and she was concerned about that today. In regards to her abdomen, she has had a small mass along her's incision site from previous but feels like it is more painful and swollen than typical. On exam, she is well-appearing besides having this mass. It is not fluctuant. is not red or warm it is tender. IV access established and multiple blood testing was obtained include blood cultures and lactic acid. I am concerned given her history that she could have an infection. She does have a low-grade temperature however has a normal white count and normal lactic acid. Her blood pressure is also been normal. She did receive IV normal saline bolus here. She has normal electrolytes. Chest x-ray was clear and shows no pn eumonia. I also did a CAT scan of her abdomen and there is no acute intra- abdominal processes, there is a 2 x 2 centimeter soft tissue mass that abuts the rectus muscle. I am not sure what the etiology is of this and this may need surgical consultation. Given her history of being immunocompromised, I do think she needs IV antibiotics and observation and surgical consultation. She was given IV Zosyn as well as IV vancomycin. When she received the vancomycin she did get a little bit itchy but she responded well to IV Benadryl she had no other signs of allergic reaction she says she has had vancomycin before and tends to get reactions like that but does well otherwise. I did consult the [facility] hospitalist to see her for admission/observation . Impression & Plan Febrile illness, Immunocompromised, Mass of soft tissue, SLE (systemic lupus erythematosus) Discharge Plan Visit Data *Final* Discharge Date/Time: 04/17/19 00:31 Chief Complaint: Vomiting Stated Complaint: LUMP ON ABD, CHILLS, VOMITTING, NAUSEA ED Provider: Kwame Butler Discharge Problem: Febrile illness, Immunocompromised, Mass of soft tissue, SLE (systemic lupus erythematosus) Patient Disposition: Admitted As Inpatient Discharge Instructions Interventions: ED Discharge Assessment Last Done: 04/17/19 00:31 The scribe's documentation has been prepared under my direction and personally reviewed by me in its entirety. I confirm that the note above accurately reflects all work, treatment, procedures, and medical decision making performed by me.
[2019-04-17] MEDS ORDERED: BUPIVACAINE/EPINEPHRINE 0.5% MPF 1:200,000 30 ML VIAL ONE (15:00)
--- NOTE | 2019-04-17 15:22 | Operative Report ---
Post Operative Report Pre & Post Diagnosis Operation Date: 04/17/19 13:10 Pre-Op Diagnosis: mass of abdominal wall Post-Op Diagnosis: mass of abdominal wall Procedure Operation Date: 04/17/19 13:10 Actual Procedures p Excision of Abdominal Wall Mass(Not Applicable) - Kobe Mae DO Surgeon Kobe Mae DO Adhesion Tester davi Lopez Estimated Blood Loss 3 Findings Consistent with Post-Op Diagnosis Specimens abdominal wall mass Description of Procedure After informed consent was obtained the patient was taken to the operating room and placed in supine position. After placement of the laryngeal mask airway the abdomen was sterilely prepped and draped in usual fashion. A horizontal incision through her old lower abdominal scar line was made with a 10 blade scalpel. This was carried down through the soft tissue using cautery. We readily were able to palpate the large firm fixed abdominal wall mass. Using traction countertraction and cautery I was able to come around the mass in 360 degrees. It was attached to underlying fascia which we removed en bloc with the mass. It was probably a little bit bigger than the size of a golf ball. Once we had it entirely removed we sent it to pathology. We then closed the fascial defect using 0 Vicryl in a running fashion. Any small bleeding points were controlled using cautery. The wound was thoroughly irrigated and then closed in multiple layers using 2-0 Vicryl for deep layers 3-0 Vicryl for mid layers and 4-0 Monocryl for skin. Marcaine with epinephrine was injected around the entire region for postoperative analgesia. Benzoin Steri-Strips gauze and tape were used as dressings. The patient was awakened extubated and transferredto recovery in stable condition. My physician research lab assistant was present to the entire case. He helped prep the patient. He helped with exposure during my dissection as well as with wound closure and dressing placement. I attest to the content of the Intraoperative Record and any orders documented therein. Any exceptions are noted below.
[2019-04-17] MEDS: fentaNYL citrate 100 MCG/2 ML VIAL IV PRN ×4 (15:38→15:53)
[2019-04-17] MEDS ORDERED: HYDROmorphone INJ 1 MG/ML SYRINGE ONE (16:00)
[2019-04-17] MEDS ORDERED: HYDROmorphone INJ 0.5 MG/0.5 ML SYR IV STA (16:03)
--- NOTE | 2019-04-17 16:03 | Anesthesiology Progress Note ---
Date of Service April 17, 2019 Anesthesia Post Procedure Vital Signs Vital Signs: Temp Pulse Pulse Resp BP BP Pulse Ox 04/17/19 15:55 68 11 L 117/72 99 04/17/19 15:45 70 14 119/73 100 04/17/19 15:35 75 18 125/79 100 04/17/19 15:26 36.5 C 81 17 128/84 100 04/17/19 14:15 37.1 C 48 L 16 117/73 98 04/17/19 07:02 36.6 C 53 L 20 109/74 97 04/17/19 00:45 36.7 C 75 16 119/68 93 04/17/19 00:00 57 L 15 104/79 96 04/16/19 23:31 58 L 17 128/58 L 97 04/16/19 23:30 67 17 97 04/16/19 23:00 58 L 21 129/79 97 04/16/19 22:51 60 21 128/86 96 04/16/19 22:49 60 15 128/86 96 04/16/19 22:31 74 22 168/122 H 97 04/16/19 22:30 68 17 98 04/16/19 22:00 61 15 135/95 98 04/16/19 21:31 60 20 127/82 97 04/16/19 21:30 67 13 98 04/16/19 21:15 37.3 C 66 18 133/83 97 04/16/19 21:02 65 24 97 04/16/19 21:00 68 18 133/83 97 04/16/19 20:30 60 63 16 141/96 H 141/96 H 98 04/16/19 20:18 96 04/16/19 19:02 37.6 C H 79 16 160/84 H 96 Pain Intensity Lower Abdomen: Pain Intensity: 6 Transfer of Care Handoff Completed per policy Notes Mental Status: alert / awake / arousable Patient Amnestic to Procedure: Yes Nausea / Vomiting: adequately controlled Pain: adequately controlled Airway Patency, RR, SpO2: stable & adequate BP & HR: stable & adequate Hydration State: stable & adequate Anesthetic Complications: no major complications apparent
--- NOTE | 2019-04-17 16:58 | Hospitalist Progress Note ---
Date of Service April 17, 2019 Assessment & Plan (1) Febrile illness: UA, chest x-ray were negative for infection - Considering abdominal "mass-like density" as possible source - surgical excision 04/17/19 with cultures and pathology sent Empiric abx treatment--Vanc/Zosyn - patient reports her scalp gets itchy with vancomycin and that she usually just takes benedryl with it so will provide benedryl before administration - Follow IgG, IgA, IgM levels--screening for immunodeficiency - Follow blood cultures (2) Mass of soft tissue: excised today as above (3) SLE (systemic lupus erythematosus): - Hold Plaquenil (4) Hypothyroid: -home levothyroxine (5) Anxiety disorder: with depression resume Prozac (6) Chronic headaches: Headaches in the setting undifferientiated brain lesion - Lesion is stable, receives q 6 MRI - resume topiramate (7) DVT prophylaxis: SCDs Subjective Ms. Sifuentes is no longer vomiting. She continues to feel unwell. Afebrile overnight Review of Systems Review of Systems: All systems reviewed & are unremarkable except as noted in HPI & below Results & Data Vital Signs (Past 12 Hours) Vital Signs Temp Pulse Pulse Resp BP Pulse Ox 04/17/19 16:35 36.4 C L 77 16 125/84 96 04/17/19 16:25 36.4 C L 60 14 114/69 99 04/17/19 16:15 61 15 120/65 99 04/17/19 16:05 63 12 119/71 99 04/17/19 15:55 68 11 L 117/72 99 04/17/19 15:45 70 14 119/73 100 04/17/19 15:35 75 18 125/79 100 04/17/19 15:26 36.5 C 81 17 128/84 100 04/17/19 14:15 37.1 C 48 L 16 117/73 98 04/17/19 07:02 36.6 C 53 L 20 109/74 97 (1) SLE (systemic lupus erythematosus) Systemic lupus erythematosus organ involvement: unspecified Systemic lupus erythematosus type: unspecified Qualified Code(s): M32.9 - Systemic lupus erythematosus, unspecified
[2019-04-17] MEDS ORDERED: VANCOMYCIN TROUGH ONE (17:30)
[2019-04-17] MEDS: OXYCODONE HCL IR 5 MG TAB (IMMEDIATE RELEASE) PO PRN (19:47)
[2019-04-18] MEDS ORDERED: ACETAMINOPHEN 65 ML IV PRN (00:38)
[2019-04-18] MEDS: PIPERACILLIN/TAZOBACTAM 3.375 GM in DEXTROSE 5% 100 ML IV SCH ×2 (02:00→11:12)
[2019-04-18] MEDS: OXYCODONE HCL IR 5 MG TAB (IMMEDIATE RELEASE) PO PRN ×3 (05:46→15:08)
[2019-04-18] MEDS: SODIUM CHLORIDE 0.9% 1000ML 1,000 ML IV SCH (05:47)
[2019-04-18] MEDS ORDERED: LEVOTHYROXINE SODIUM 150 MCG TABLET PO SCH (06:30)
--- NOTE | 2019-04-18 07:22 | Surgery Progress Note ---
Date of Service April 18, 2019 Assessment & Plan (1) Mass of soft tissue: POD 1 abdominal wall mass excision did not appear as abscess, ? endometrioma, path pending possible d/c today Subjective some incisional pain but otherwise well Physical Exam Gastrointestinal (Abdomen): Inspection/Auscultation: + abdominal surgical incision (dressing clean, dry) Results & Data Vital Signs (Past 12 Hours) Vital Signs Temp Pulse Resp BP Pulse Ox 04/18/19 03:31 36.6 C 44 L 16 116/77 97 04/17/19 23:03 36.6 C 51 L 16 120/85 98 04/17/19 19:44 36.6 C 49 L 16 108/65 95
[2019-04-18] MEDS ORDERED: MoRPHine SULFATE 4 MG/ML 1 ML CARP\\VIAL IV PRN (07:26)
[2019-04-18 07:41] LABS: Creatinine Clr Calc Pharmacy 119.5 ml/min; Est GFR (Non-African American) 99.2
[2019-04-18] MEDS: VANCOMYCIN HCL 1,500 MG in SODIUM CHLORIDE 0.9% 500 ML IV SCH (07:48)
--- NOTE | 2019-04-18 07:55 | Anesthesiology Progress Note ---
Date of Service April 18, 2019 Anesthesia Post Procedure Vital Signs Vital Signs: Temp Pulse Pulse Resp BP Pulse Ox 04/18/19 07:40 36.8 C 52 L 16 141/87 H 04/18/19 03:31 36.6 C 44 L 16 116/77 97 04/17/19 23:03 36.6 C 51 L 16 120/85 98 04/17/19 19:44 36.6 C 49 L 16 108/65 95 04/17/19 18:36 36.5 C 60 17 101/66 95 04/17/19 17:32 50 L 18 121/81 94 04/17/19 17:09 36.8 C 58 L 16 125/83 98 04/17/19 16:35 36.4 C L 77 16 125/84 96 04/17/19 16:25 36.4 C L 60 14 114/69 99 04/17/19 16:15 61 15 120/65 99 04/17/19 16:05 63 12 119/71 99 04/17/19 15:55 68 11 L 117/72 99 04/17/19 15:45 70 14 119/73 100 04/17/19 15:35 75 18 125/79 100 04/17/19 15:26 36.5 C 81 17 128/84 100 04/17/19 14:15 37.1 C 48 L 16 117/73 98 Pain Intensity Lower Abdomen: Pain Intensity: 2 Notes Mental Status: alert / awake / arousable and participated in evaluation Nausea / Vomiting: adequately controlled Pain: adequately controlled Airway Patency, RR, SpO2: stable & adequate BP & HR: stable & adequate Hydration State: stable & adequate
[2019-04-18 08:46] LABS: Basophils # (auto) 0.03 K/uL (0-0.2); Basophils % (auto) 0.4 %; Eosinophils # (auto) 0.15 K/uL (0-0.5); Hematocrit (blood only) 33.9 % (37-47); Hemoglobin 11.6 g/dL (12.0-16.0); Lymphocytes % (auto) 27.6 %; Mean Corpuscular Hgb Conc 34.2 g/dL (32-36); Mean Corpuscular Volume 88.3 fL (80-100); Mean Platelet Volume 9.8 fL (7.4-10.4); Monocytes # (auto) 0.52 K/uL (0.11-0.59); Monocytes % (auto) 6.8 %; Neutrophils % (auto) 63.2 %; Platelet Count 190 K/uL (130-400); RDW Coefficient of Variation 12.7 % (11.5-14.5); RDW Standard Deviation 41.2 fL (36.4-46.3); Red Blood Count 3.84 M/uL (4.2-5.4)
[2019-04-18 08:51] LABS: BUN Creatinine Ratio 7.9 (10-20); Calcium 8.4 mg/dl (8.5-10.1); Creatinine Clr Calc Pharmacy 122.7 ml/min; Est GFR (African American) 118.6; Est GFR (Non-African American) 102.3; Potassium 3.6 mmol/L (3.5-5.1)
[2019-04-18] MEDS ORDERED: CHOLECALCIFEROL 1,000 UNITS TAB PO SCH (09:00)
[2019-04-18] MEDS ORDERED: FLUOXETINE HCL 20 MG CAP PO SCH (09:00)
[2019-04-18] MEDS ORDERED: CYANOCOBALAMIN (VITAMIN B-12) 100 MCG TABLET PO SCH (09:00)
--- NOTE | 2019-04-18 11:43 | Discharge Summary ---
Date of Service April 18, 2019 Admission HPI Per Admitting Provider 33-year-old female with history of SLE on Plaquenil, depression, obesity status post gastric bypass, hypothyroidism, Sjogren's, and recurrent MRSA skin infections presents with fevers for 1 day. She also endorses having abdominal pain for 1 week and has discovered a small lump under her umbilicus. She describes having nausea and vomiting throughout the day. Patient states that she is been instructed by her primary care doctor to the emergency room because of her persistent skin infections in the past which have been resistant to oral antibiotics. She describes a severe MRSA infection of her right distal extremity and gluteal cyst. Patient denies shortness of breath, cough. She denies upper respiratory infection symptoms. She denies dysuria. Principal Diagnosis Febrile illness Discharge Exam Constitutional WD/WN, vitals as above Respiratory normal respiratory effort, lungs clear to auscultation Cardiovascular RRR, no murmur, no edema Gastrointestinal (Abdomen) normal bowel sounds, soft, nontender, no hepatosplenomegaly Musculoskeletal no cyanosis or clubbing, extremities motor strength 5/5 Skin no rashes, warm and dry Neurologic moves all extremities and awake Psychiatric A+Ox3, euthymic affect Discharge Data Allergies Allergy/AdvReac Type Severity Reaction Status Date / Time No Known Allergies Allergy Verified 01/16/19 09:00 Consultations 04/16/19 21:20 ED Decision to Admit Stat 04/17/19 00:55 Consult General Surgery Routine Procedures Performed Operation Date: 04/17/19 13:10 Actual Procedures p Excision of Abdominal Wall Mass(Not Applicable) - Kobe Mae, DO Ordered Studies 04/16/19 19:43 CT abd pelvis wo con Stat Hospital Course (1) Febrile illness: UA, chest x-ray were negative for infection - surgical excision 04/17/19 with cultures and pathology sent - did not appear to be an abscess, possibly endometrioma. Pathology pending Empiric abx treatment--Vanc/Zosyn - blood cultures ngtd, will discontinue abx - Follow IgG, IgA, IgM levels--screening for immunodeficiency - IgG was low, follow up outpatient - ngtd - Lyme screen negative (2) Immunocompromised: (3) Lupus: (4) Anxiety disorder: with depression continue Prozac - may want to consider alternatives with primary care provider as patient has mild QT prolongation. QTc was 488 on EKG. Would not want to discontinue SSRI abruptly due to risk of withdrawal and this is not a new medication for her, so will leave for now and have patient follow with her primary. 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 Sifuentes reports dull chest ache that she has been having worked up outpatient. Her sternum is somewhat tender to palpation. She denies any changes in symptoms with positioning. ECG with NSR but with mild QTc prolongation of 488. She will hold her Plaquenil until she sees her primary care provider as she thinks she can tolerate some days without it. Her SSRI will be continued as above as this is a home medication she has been on without issue for quite some time. No previous ECG for comparison. Holter monitor will be arranged for after discharge. - recommend repeating EKG at next pcp appt. Total Time Total Time Spent Total Time Spent (In Minutes): greater than 30 minutes. Discharge Plan Discharge Items Patient Disposition: Home - Self-Care Reason For Visit: FEVER,SUBCUTANEOUS ABD MASS Discharge Diagnosis: Febrile illness, subcutaneous mass Discharge Goals: Decrease discomfort Activity: Per 'Additional Instructions' section Lifting: No more than 10 pounds Bathing Comment: ok to shower, remove bandage to shower Driving/Machine Use: Resume 3 days after discharge Non-emergency contact: Surgeon Call non-emergency contact if: you have any medication questions, your pain is not controlled, you have a fever, your temperature is above 101.5 and your wound has increased redness Follow-up/Referrals: Kobe Mae DO [Surgeon] - (In 2 weeks, call to schedule an appt) Refugio Robison DO [Resident] - 04/24/19 10:30 am (An appointment has been made at your PCP's office on your behalf. Please call the office with any questions or concerns. ) Diet: Regular Addtl Provider Instructions: Please see your primary care provider next week. You will be contacted about setting up a a Holter monitor study to evaluate your heart rate and rhythm. Please hold your hydroxychloroquine until you follow up with your primary care provider. Your Lyme disease screen was negative. Prescriptions: New hydrocodone-acetaminophen [Ferris] 5-325 mg tablet 1 - 2 tab PO Q4H Qty: 15 RF: 0 Continued fluoxetine [Prozac] 40 mg Capsule 80 mg PO QAM RF: 0 Vitamin B-12 50 mcg Tablet 50 mcg PO QAM RF: 0 hydroxychloroquine [Plaquenil] 200 mg Tablet 200 mg PO BID RF: 0 albuterol sulfate [Ventolin HFA] 90 mcg/actuation Hfa Aerosol Inhaler 2 puff INHALATION Q6H PRN (Reason: Shortness Of Breath) RF: 0 cholecalciferol (vitamin D3) [Vitamin D3] 1,000 unit Tablet 1,000 unit PO QAM RF: 0 Asmanex Twisthaler 220 mcg (30 doses) aerosol powdr breath activated 2 puff Inhalation BID PRN (Reason: Shortness Of Breath Or Wheezing) RF: 0 levothyroxine [Synthroid] 150 mcg tablet 150 mcg PO DAILY RF: 0 topiramate [Qudexy XR] 100 mg capsule,sprinkle,ER 24hr 100 mg PO DAILY RF: 0 topiramate [Qudexy XR] 200 mg capsule,sprinkle,ER 24hr 200 mg PO DAILY RF: 0 lorazepam [Ativan] 0.5 mg tablet 0.5 mg PO BID PRN (Reason: Anxiety) RF: 0 Stand-Alone Forms: [facility]/Other Patient Handouts: Monitor Holter Discharge Orders: Discharge Order (Routine); Ordered 04/18/19 Ordered By: Komal Cristobal Admission Data Admit Date/Time: 04/16/19 23:39 Attending Provider: Madan Snyder Admit Provider: Mohsen Wisdom Primary Care Provider: Manjula Arciniega Other Providers: Fidel Mejia ; Prashant Huang Service: Medical Other Pending Studies at Discharge: Yes Studies:: Pathology on abdominal incision
[2019-04-18 14:50] LABS: Lyme Ab IgG w/WB Rflx Negative (Negative); Lyme Ab IgM w/WB Rflx Negative (Negative)
[2019-04-18] MEDS ORDERED: VANCOMYCIN TROUGH ONE (15:30)
== END 2019-04-18 17:10 | disposition home or self-care (01) | DRG 864 ==
LOC: ED 18:49 → 3W 23:39 → SUATTDRO 23:39 → 3W 04-17 00:31